=== PATIENT | male | born 1985 | race Caucasian/White ===

== ENCOUNTER 2016-09-18 10:26 | Emergency (ER) | payer OTHER ==
[2016-09-18 10:38] VITALS: BP 153/80; PULSE 94; RESP 20; TEMP 98.5
--- NOTE | 2016-09-18 12:01 | ED ---
Anxiety HPI - General Chief Complaint: Anxiety Stated Complaint: anxiety Time Seen by Provider: 09/18/16 11:49 Source: patient Mode of arrival: ambulatory - History of Present Illness Initial Comments: Patient is a 31-year-old male with history of anxiety presenting with worsening anxiety. Patient states he lost his 2-month-old son in his sleep several years ago. Patient has worsening anxiety around his son's birthday as well as Father' s Day. Patient takes clonidine 0.1 mg for his anxiety. He has been taking clonidine without relief. Patient was cleared from a therapist as he was doing well. Patient states since Monday he has been having intermittent anxiety episodes where he can't function. Patient denies suicidality, homicidality or hallucinations. - Related Data Home Medications: Home Medications Medication Instructions Recorded Confirmed Albuterol Inhaler [Ventolin Hfa 2 puff INHALATION RT-Q6H PRN 12/22/15 09/18/16 Inhaler] Famotidine [Pepcid] 20 mg PO DAILY PRN 09/18/16 09/18/16 cloNIDine HCL [Catapres] 0.1 mg PO HS 09/18/16 09/18/16 Previous Rx's Medication Instructions Recorded clonazePAM [KlonoPIN] 0.5 mg PO BID PRN #6 tablet 09/18/16 Allergies/Adverse Reactions: Allergies Allergy/AdvReac Type Severity Reaction Status Date / Time oats Allergy Anaphylaxis Verified 09/18/16 11:33 Penicillins Allergy Unknown Verified 09/18/16 11:33 Childhood Review of Systems ROS Statement: Those systems with pertinent positive or pertinent negative responses have been documented in the HPI. Constitutional: No fever and no chills. HENT: No congestion, no rhinorrhea and no sore throat. Eyes: No discharge and no redness. Respiratory: No cough and no shortness of breath. Cardiovascular: No chest pain and no palpitations. Gastrointestinal: No nausea, no vomiting, no abdominal pain and no diarrhea. Genitourinary: No dysuria and no hematuria. Musculoskeletal: No back pain and no arthralgias. Skin: No pallor and no rash. Neurological: No dizziness and No headaches. Psych: No suicidality, homicidality or hallucinations. ROS Other: All systems not noted in ROS Statement are negative. Past Medical History Past Medical History: No Reported History Additional Past Medical History / Comment(s): gallbladder problems History of Any Multi-Drug Resistant Organisms: None Reported Past Surgical History: Cholecystectomy, Hernia Repair, Tonsillectomy Additional Past Surgical History / Comment(s): pulmonary infusion Past Psychological History: Anxiety, Depression Smoking Status: Current every day smoker Past Alcohol Use History: None Reported Past Drug Use History: None Reported General Exam - General Exam Comments Initial Comments: Constitutional: Patient appears well-developed and well-nourished. No distress. Anxious appearing. Head: Normocephalic and atraumatic. Eyes: Conjunctivae and EOM are normal. Right eye exhibits no discharge. Left eye exhibits no discharge. No scleral icterus. Neck: Normal range of motion. Neck supple. Cardiovascular: Normal rate and regular rhythm. No murmur heard. Pulmonary/Chest: Effort normal and breath sounds normal. No respiratory distress. No wheezes. Abdominal: Soft. No distension. There is no tenderness. There is no rebound and no guarding. Musculoskeletal: Normal range of motion. No edema or tenderness. Neurological: Patient alert and oriented to person, place, and time. Psych: Denies suicidality, homicidality or hallucinations. Skin: Skin is warm and dry. Not diaphoretic. Nursing notes and vitals reviewed. Limitations: no limitations Course Vital Signs 09/18/16 10:37 Temperature 98.5 F Pulse Rate 94 Respiratory 20 Rate Blood Pressure 153/80 O2 Sat by Pulse 100 Oximetry - Reevaluation(s) Reevaluation #1: 09/18/16 12:05 Patient was on Klonopin in the past which worked for him. Patient requesting a short prescription for Klonopin. Medical Decision Making - Medical Decision Making Patient's a 31-year-old male presenting with anxiety. Patient is on clonidine and is not working for him. Patient's son in his sleep and patient gets triggers around Father's Day and his son's birthday. Patient states Klonopin worked in the past requesting a short prescription for. I will give patient a short prescription for Klonopin as she can follow-up with PCP on Monday or psychiatrist. Prior to discharge, patient was resting comfortably in bed. Course of stay stable for outpatient management as he is not suicidal, homicidal hallucinating. Denies pain. Discussed physical exam with patient. Questions answered and patient is agreeable to discharge with close follow up with Primary Care Physician. Instructed to return to Emergency Department if symptoms worsen. Disposition Clinical Impression: Anxiety Disposition: HOME SELF-CARE Condition: Good Instructions: Generalized Anxiety Disorder (ED) Prescriptions: clonazePAM [KlonoPIN] 0.5 mg PO BID PRN #6 tablet PRN Reason: Anxiety Referrals: Maki Plaza MD [Primary Care Provider] - 1-2 days
== END 2016-09-18 12:24 | disposition home or self-care (01) ==
LOC: EC 10:26
DX: F41.9 Anxiety disorder, unspecified (principal); F17.200 Nicotine dependence, unspecified, uncomplicated; Z79.899 Other long term (current) drug therapy; Z91.018 Allergy to other foods; Z88.0 Allergy status to penicillin
CPT/HCPCS: 99283

== ENCOUNTER 2017-05-26 23:41 | Inpatient (IN) | payer OTHER ==
--- NOTE | 2017-05-27 00:27 | ED ---
General Adult HPI - General Chief complaint: Shortness of Breath Stated complaint: NOMAN Time Seen by Provider: 05/27/17 00:08 Source: patient Mode of arrival: wheelchair Limitations: no limitations - History of Present Illness Initial comments: 32-year-old male patient presents to the emergency department today for complaints of shortness of breath. Patient states that symptoms started on Monday. States that he also has a cough with clear sputum production. States he has been wheezy. He states that he is unable to lie down without his shortness of breath becoming significantly worse. States he has been evaluated at [facility] emergency department and his primary care physician. He is been started on doxycycline twice daily, prednisone, and given DuoNeb breathing treatments. States has been doing multiple breathing treatments per day without relief of symptoms. States when he saw his primary care physician yesterday they did give him an injection of steroids. He states he is not feeling any better. States he's been having some chills. States that people noticed his lips have had a blue discoloration. He states that he was recently diagnosed with COPD and has been diagnosed with asthma in the past. He does report smoking a half a pack of cigarettes per day. He states that he becomes dizzy whenever he attempts to perform any activities. He states his chest feels tight and he has sharp pains bilaterally when he attempts to take a deep breath. Patient denies any recent rash, fever, abdominal pain, nausea, vomiting, diarrhea, constipation, back pain, numbness, tingling, weakness, hematuria, dysuria, urinary urgency, urinary frequency, headache, visual changes, or any other complaints. - Related Data Home Medications Medication Instructions Recorded Confirmed Albuterol Inhaler [Ventolin Hfa 2 puff INHALATION RT-Q6H PRN 12/22/15 09/18/16 Inhaler] Famotidine [Pepcid] 20 mg PO DAILY PRN 09/18/16 09/18/16 cloNIDine HCL [Catapres] 0.1 mg PO HS 09/18/16 09/18/16 DULoxetine HCL [Cymbalta] 60 mg PO DAILY 05/27/17 05/27/17 Allergies Allergy/AdvReac Type Severity Reaction Status Date / Time oats Allergy Anaphylaxis Verified 05/26/17 23:50 Penicillins Allergy Unknown Verified 05/26/17 23:50 Childhood Review of Systems ROS Statement: Those systems with pertinent positive or pertinent negative responses have been documented in the HPI. ROS Other: All systems not noted in ROS Statement are negative. Past Medical History Past Medical History: COPD, GERD/Reflux Additional Past Medical History / Comment(s): gallbladder problems History of Any Multi-Drug Resistant Organisms: None Reported Past Surgical History: Cholecystectomy, Hernia Repair, Tonsillectomy Additional Past Surgical History / Comment(s): pulmonary infusion Past Psychological History: Anxiety, Depression Smoking Status: Current every day smoker Past Alcohol Use History: None Reported Past Drug Use History: None Reported General Exam Limitations: no limitations General appearance: alert, in no apparent distress, anxious Eye exam: Present: normal appearance, PERRL, EOMI. Absent: scleral icterus, conjunctival injection, periorbital swelling ENT exam: Present: normal exam, normal oropharynx, mucous membranes moist, other (Bluish lower lip discoloration, lip is scaly and dry.) Respiratory exam: Present: wheezes (Expiratory wheezing noted throughout all posterior lung chavez). Absent: normal lung sounds bilaterally, respiratory distress, rales, rhonchi, stridor, chest wall tenderness Cardiovascular Exam: Present: regular rate, normal rhythm, normal heart sounds. Absent: systolic murmur, diastolic murmur, rubs, gallop, clicks GI/Abdominal exam: Present: soft, normal bowel sounds. Absent: distended, tenderness, guarding, rebound, rigid Neurological exam: Present: alert, oriented X3, CN II-XII intact Psychiatric exam: Present: normal affect, normal mood Skin exam: Present: warm, dry, intact, normal color. Absent: rash Course Vital Signs 05/26/17 05/27/17 05/27/17 23:47 01:05 01:12 Temperature 99.3 F Pulse Rate 98 88 97 Respiratory 20 Rate Blood Pressure 123/75 O2 Sat by Pulse 95 Oximetry EKG Findings - EKG Comments: EKG Findings:: EKG obtained at 00 55 shows normal sinus rhythm with a ventricular rate of 92, OR interval 136, QRS duration 94, QT 344, QTC 425. Medical Decision Making - Medical Decision Making 32-year-old male patient presented to the emergency department today with complaints of severe dyspnea and chest tightness. Physical examination did reveal coarse expiratory wheezing throughout all posterior lung chavez. Lips did have a bluish discoloration that did improve with the use of oxygen. Patient remained rib proximally 93% on 2 L while in the department. He did receive a DuoNeb, IV Solu-Medrol, and pain medications here in the department however he reported no improvement in his symptoms. Lab testing was performed and reviewed, d-dimer was negative, ABG was performed and showed a pH of 7.46, CO2 of 33, and a pO2 of 74. Methemoglobin was 0.6, carbon dioxide was 2.8. Other labs are markable as well. Chest x-ray did show worsening of the interstitial pulmonary markings. There is slight blunting of the right costophrenic angle. Suggestion of possible mild interstitial pneumonia. We will give a dose of rocephin and azithromycin pending further evaluation. We will admit patient to the hospital for failed outpatient treatment of acute bronchitis and possible pneumonia. We will provide breathing treatments, IV steroids, and antitussives. - Lab Data Result diagrams: 05/27/17 00:50 05/27/17 00:50 Lab Results 05/27/17 05/27/17 05/27/17 Range/Units 00:50 00:50 00:50 WBC 7.0 (3.8-10.6) k/uL RBC 4.88 (4.30-5.90) m/uL Hgb 15.6 (13.0-17.5) gm/dL Hct 47.8 (39.0-53.0) % MCV 97.9 (80.0-100.0) fL MCH 31.9 (25.0-35.0) pg MCHC 32.6 (31.0-37.0) g/dL RDW 12.2 (11.5-15.5) % Plt Count 187 (150-450) k/uL Neutrophils % 70 % Lymphocytes % 16 % Monocytes % 10 % Eosinophils % 1 % Basophils % 1 % Neutrophils # 4.9 (1.3-7.7) k/uL Lymphocytes # 1.1 (1.0-4.8) k/uL Monocytes # 0.7 (0-1.0) k/uL Eosinophils # 0.1 (0-0.7) k/uL Basophils # 0.1 (0-0.2) k/uL D-Dimer <0.17 (<0.60) mg/L FEU Sample Site ABG pH (7.35-7.45) ABG pCO2 (35-45) mmHg ABG pO2 (83-108) mmHg ABG HCO3 (21-25) mmol/L ABG Total CO2 (19-24) mmol/L ABG O2 Saturation (94-97) % ABG Base Excess mmol/L Jarred Test Methemoglobin (0.0-1.5) % Carbon Monoxide, Quant (<10.0) % FiO2 % Sodium 138 (137-145) mmol/L Potassium 4.0 (3.5-5.1) mmol/L Chloride 103 (98-107) mmol/L Carbon Dioxide 23 (22-30) mmol/L Anion Gap 12 mmol/L BUN 18 (9-20) mg/dL Creatinine 0.80 (0.66-1.25) mg/dL Est GFR (MDRD) Af Amer >60 (>60 ml/min/1.73 sqM) Est GFR (MDRD) Non-Af >60 (>60 ml/min/1.73 sqM) Glucose 85 (74-99) mg/dL Calcium 9.1 (8.4-10.2) mg/dL Total Bilirubin 0.2 (0.2-1.3) mg/dL AST 22 (17-59) U/L ALT 40 (21-72) U/L Alkaline Phosphatase 60 (38-126) U/L NT-Pro-B Natriuret Pep pg/mL Total Protein 7.1 (6.3-8.2) g/dL Albumin 4.3 (3.5-5.0) g/dL Influenza Type A RNA (Not Detectd) Influenza Type B (PCR) (Not Detectd) 05/27/17 05/27/17 05/27/17 Range/Units 00:50 01:50 01:50 WBC (3.8-10.6) k/uL RBC (4.30-5.90) m/uL Hgb (13.0-17.5) gm/dL Hct (39.0-53.0) % MCV (80.0-100.0) fL MCH (25.0-35.0) pg MCHC (31.0-37.0) g/dL RDW (11.5-15.5) % Plt Count (150-450) k/uL Neutrophils % % Lymphocytes % % Monocytes % % Eosinophils % % Basophils % % Neutrophils # (1.3-7.7) k/uL Lymphocytes # (1.0-4.8) k/uL Monocytes # (0-1.0) k/uL Eosinophils # (0-0.7) k/uL Basophils # (0-0.2) k/uL D-Dimer (<0.60) mg/L FEU Sample Site ABG pH (7.35-7.45) ABG pCO2 (35-45) mmHg ABG pO2 (83-108) mmHg ABG HCO3 (21-25) mmol/L ABG Total CO2 (19-24) mmol/L ABG O2 Saturation (94-97) % ABG Base Excess mmol/L Jarred Test Methemoglobin 0.6 (0.0-1.5) % Carbon Monoxide, Quant 2.8 (<10.0) % FiO2 % Sodium (137-145) mmol/L Potassium (3.5-5.1) mmol/L Chloride (98-107) mmol/L Carbon Dioxide (22-30) mmol/L Anion Gap mmol/L BUN (9-20) mg/dL Creatinine (0.66-1.25) mg/dL Est GFR (MDRD) Af Amer (>60 ml/min/1.73 sqM) Est GFR (MDRD) Non-Af (>60 ml/min/1.73 sqM) Glucose (74-99) mg/dL Calcium (8.4-10.2) mg/dL Total Bilirubin (0.2-1.3) mg/dL AST (17-59) U/L ALT (21-72) U/L Alkaline Phosphatase (38-126) U/L NT-Pro-B Natriuret Pep 37 pg/mL Total Protein (6.3-8.2) g/dL Albumin (3.5-5.0) g/dL Influenza Type A RNA Not Detected (Not Detectd) Influenza Type B (PCR) Not Detected (Not Detectd) 05/27/17 Range/Units 02:02 WBC (3.8-10.6) k/uL RBC (4.30-5.90) m/uL Hgb (13.0-17.5) gm/dL Hct (39.0-53.0) % MCV (80.0-100.0) fL MCH (25.0-35.0) pg MCHC (31.0-37.0) g/dL RDW (11.5-15.5) % Plt Count (150-450) k/uL Neutrophils % % Lymphocytes % % Monocytes % % Eosinophils % % Basophils % % Neutrophils # (1.3-7.7) k/uL Lymphocytes # (1.0-4.8) k/uL Monocytes # (0-1.0) k/uL Eosinophils # (0-0.7) k/uL Basophils # (0-0.2) k/uL D-Dimer (<0.60) mg/L FEU Sample Site rbrac ABG pH 7.46 H (7.35-7.45) ABG pCO2 33 L (35-45) mmHg ABG pO2 74 L (83-108) mmHg ABG HCO3 23 (21-25) mmol/L ABG Total CO2 24 (19-24) mmol/L ABG O2 Saturation 96.2 (94-97) % ABG Base Excess -0.6 mmol/L Jarred Test Yes Methemoglobin (0.0-1.5) % Carbon Monoxide, Quant (<10.0) % FiO2 28 % Sodium (137-145) mmol/L Potassium (3.5-5.1) mmol/L Chloride (98-107) mmol/L Carbon Dioxide (22-30) mmol/L Anion Gap mmol/L BUN (9-20) mg/dL Creatinine (0.66-1.25) mg/dL Est GFR (MDRD) Af Amer (>60 ml/min/1.73 sqM) Est GFR (MDRD) Non-Af (>60 ml/min/1.73 sqM) Glucose (74-99) mg/dL Calcium (8.4-10.2) mg/dL Total Bilirubin (0.2-1.3) mg/dL AST (17-59) U/L ALT (21-72) U/L Alkaline Phosphatase (38-126) U/L NT-Pro-B Natriuret Pep pg/mL Total Protein (6.3-8.2) g/dL Albumin (3.5-5.0) g/dL Influenza Type A RNA (Not Detectd) Influenza Type B (PCR) (Not Detectd) - Radiology Data Radiology results: report reviewed, image reviewed Two-view x-ray of the chest shows heart media's enema normal. Some coarsening of the interstitial pulmonary markings. Slight blunting of the right costophrenic angle. Bony thorax is intact. Impression by Dr. Suma Corrales shows pleural reaction at the right lung base. Slight increased interstitial density in the lungs is nonspecific. This could be mild interstitial pneumonia. Normal heart. Disposition Clinical Impression: Pneumonia, Acute bronchitis Disposition: ADMITTED IP TO THIS HOSP Condition: Serious Referrals: Maki Plaza MD [Primary Care Provider] - 1-2 days Decision to Admit Reason: Admit from EC Decision Date: 05/27/17 Decision Time: 02:46
[2017-05-27] MEDS ORDERED: IPRATROPIUM-ALBUTEROL 3 ML NEB INHALATION STA (00:36)
[2017-05-27] MEDS ORDERED: methylPREDNISolone SOD SUCCI 125 MG/2 ML VIAL IV STA ×2 (00:37→02:36)
[2017-05-27 01:04] LABS: Basophils # (A) 0.1 k/uL (0-0.2); Basophils % (A) 1 %; Eosinophils # (A) 0.1 k/uL (0-0.7); Eosinophils % (A) 1 %; HCT 47.8 % (39.0-53.0); HGB 15.6 gm/dL (13.0-17.5); Lymphocytes # (A) 1.1 k/uL (1.0-4.8); Lymphocytes % (A) 16 %; MCH 31.9 pg (25.0-35.0); MCHC 32.6 g/dL (31.0-37.0); MCV 97.9 fL (80.0-100.0); Mean Platelet Volume 7.2; Monocytes # (A) 0.7 k/uL (0-1.0); Monocytes % (A) 10 %; Neutrophils # (A) 4.9 k/uL (1.3-7.7); Neutrophils % (A) 70 %; Platelet Count 187 k/uL (150-450); RBC 4.88 m/uL (4.30-5.90); RDW 12.2 % (11.5-15.5)
[2017-05-27 01:18] LABS: ALT 40 U/L (21-72); AST 22 U/L (17-59); Albumin 4.3 g/dL (3.5-5.0); Alkaline Phosphatase 60 U/L (38-126); Anion Gap 12 mmol/L; Blood Urea Nitrogen 18 mg/dL (9-20); Calcium 9.1 mg/dL (8.4-10.2); Carbon Dioxide 23 mmol/L (22-30); Chloride 103 mmol/L (98-107); Glucose 85 mg/dL (74-99); Sodium 138 mmol/L (137-145); Total Bilirubin 0.2 mg/dL (0.2-1.3); Total Protein 7.1 g/dL (6.3-8.2)
--- NOTE | 2017-05-27 01:35 | XR ---
EXAMINATION TYPE: XR chest 2V DATE OF EXAM: 05/27/2017 COMPARISON: NONE HISTORY: Short of breath TECHNIQUE: Frontal and lateral views of the chest are obtained. FINDINGS: Heart and mediastinum are normal. There is some coarsening of interstitial pulmonary nanette ngs. There is slight blunting of right costophrenic angle. Bony thorax is intact. IMPRESSION: There is some pleural reaction at the right lung base. Slight increased interstitial den sity in the lungs is nonspecific. This could be mild interstitial pneumonia. Normal heart.
[2017-05-27] MEDS ORDERED: KETOROLAC 30 MG/ML 1 ML VIAL IVP STA (01:37)
[2017-05-27] MEDS ORDERED: ACETAMINOPHEN TAB 325 MG TAB PO STA (01:37)
[2017-05-27 02:05] LABS: ABG Base Excess -0.6 mmol/L; ABG HCO3 23 mmol/L (21-25); ABG Oxygen Saturation 96.2 % (94-97); ABG PCO2 33 mmHg (35-45); ABG PH 7.46 (7.35-7.45); ABG PO2 74 mmHg (83-108); ABG TCO2 24 mmol/L (19-24)
[2017-05-27 02:05] LABS: Carbon Monoxide 2.8 % (<10.0); Methemoglobin 0.6 % (0.0-1.5)
[2017-05-27] MEDS ORDERED: cloNIDine HCL 0.1 MG TAB PO STA (02:26)
[2017-05-27] MEDS ORDERED: NALOXONE 0.4 MG/ML 1 ML VIAL IV PRN (02:34)
[2017-05-27] MEDS ORDERED: BENZONATATE 100 MG CAP PO PRN (02:36)
[2017-05-27] MEDS ORDERED: ACETAMINOPHEN TAB 325 MG TAB PO PRN (02:37)
[2017-05-27] MEDS ORDERED: AZITHROMYCIN 500 MG in SODIUM CHLORIDE 0.9% 250 ML IVPB STA (02:42)
[2017-05-27] MEDS ORDERED: cefTRIAXone IN SWFI 1,000 MG/10 ML SYRINGE IVP STA ×2 (02:42→13:29)
[2017-05-27] MEDS ORDERED: FAMOTIDINE 20 MG TAB PO PRN (03:10)
[2017-05-27] MEDS ORDERED: OLANZapine 10 MG TAB PO STA (03:11)
[2017-05-27] MEDS: OLANZapine 10 MG TAB PO SCH (03:20)
[2017-05-27] MEDS ORDERED: IPRATROPIUM-ALBUTEROL 3 ML NEB INHALATION PRN (03:49)
[2017-05-27] MEDS ORDERED: IPRATROPIUM-ALBUTEROL 3 ML NEB INHALATION SCH (04:00)
[2017-05-27 04:32] VITALS: BMI 24.7
[2017-05-27] MEDS: IPRATROPIUM-ALBUTEROL 3 ML NEB INHALATION SCH ×4 (07:33→19:12)
[2017-05-27] MEDS: methylPREDNISolone SOD SUCCI 125 MG/2 ML VIAL IV SCH ×3 (07:40→19:57)
[2017-05-27] MEDS ORDERED: NITROGLYCERIN SL TABS 0.4 MG TAB SUBLINGUAL PRN (09:20)
[2017-05-27] MEDS: DULoxetine HCL 60 MG CAPSULE.DR PO SCH (09:30)
[2017-05-27] MEDS ORDERED: SODIUM CHLORIDE 0.9% 500 ML IV ONE (09:41)
[2017-05-27] MEDS: SODIUM CHLORIDE 0.9% 1,000 ML IV SCH ×4 (09:44→20:30)
[2017-05-27] MEDS: SYMBICORT 160-4.5 MCG INHALER INHALATION SCH ×2 (15:32→19:12)
[2017-05-27] MEDS: NICOTINE 21MG/24HR PATCH TRANSDERM SCH (16:29)
--- NOTE | 2017-05-27 16:49 | P.CNPUL ---
History of Present Illness Consult date: 05/27/17 Requesting physician: Nirmal Shay Reason for consult: dyspnea, abnormal CXR/CT Chief complaint: Shortness of breath, cough and congestion History of present illness: This is a very pleasant 32-year-old gentleman who follows with Dr. Plaza is his primary care physician. He has a history of chronic and ongoing tobacco dependence, anxiety/depression, esophageal strictures, previous pneumonias. He does have a history of aspiration pneumonia at age 20 that required chest tube placement and eventual surgical intervention of the right lung. Approximately 5 days ago he developed increasing shortness of breath, cough and congestion. He was seen at [facility] was treated with a doxycycline and cough medicine. He is seen by his primary care physician 2 days ago and started on 20 mg of prednisone. Yesterday he went to work and on his way home and got significantly worse shortness of breath, cough and congestion and came to the emergency room. He was felt to have a right lower lobe pneumonia according to the chest x-ray. Some of this may be chronic in nature. He is also considered for COPD exacerbation based on his chronic smoking. He is seen today in consultation on the surgical floor. He is awake and alert in no acute distress. He is breathing slightly better today as compared to yesterday. No leukocytosis. Arterial blood gases revealed a pO2 of 34, pCO2 33, pH 7.46 on 28 % FiO2. Her influenza screen was negative. He is currently afebrile. Maintaining good O2 saturations in the 90s on 2 L/m per nasal cannula. Hemodynamically stable. Review of Systems 14 point review of system was conducted. All negative other than as mentioned in the HPI. That including respiratory with shortness of breath, cough and congestion. Past Medical History Past Medical History: COPD, GERD/Reflux Additional Past Medical History / Comment(s): gallbladder problems History of Any Multi-Drug Resistant Organisms: None Reported Past Surgical History: Cholecystectomy, Hernia Repair, Tonsillectomy Additional Past Surgical History / Comment(s): pulmonary infusion Past Psychological History: Anxiety, Depression Smoking Status: Current every day smoker Past Alcohol Use History: None Reported Past Drug Use History: None Reported Medications and Allergies Home Medications Medication Instructions Recorded Confirmed Type Albuterol Inhaler [Ventolin Hfa 2 puff INHALATION RT-Q6H PRN 12/22/15 05/27/17 History Inhaler] Famotidine [Pepcid] 20 mg PO DAILY PRN 09/18/16 05/27/17 History cloNIDine HCL [Catapres] 0.1 mg PO HS 09/18/16 05/27/17 History DULoxetine HCL [Cymbalta] 60 mg PO HS 05/27/17 05/27/17 History OLANZapine [ZyPREXA] 2.5 mg PO HS 05/27/17 05/27/17 History Allergies Allergy/AdvReac Type Severity Reaction Status Date / Time oats Allergy Anaphylaxis Verified 05/27/17 11:01 Penicillins Allergy Unknown Verified 05/27/17 11:01 Childhood Physical Exam Vitals: Vital Signs Temp Pulse Pulse Resp BP BP Pulse Ox 05/27/17 15:49 80 05/27/17 15:32 80 05/27/17 15:00 97.8 F 76 16 128/62 91 L 05/27/17 12:13 130/70 05/27/17 11:38 77 05/27/17 11:24 77 05/27/17 07:48 84 05/27/17 07:33 80 05/27/17 07:00 98.4 F 76 16 109/62 98 05/27/17 05:14 79 16 05/27/17 04:57 98.5 F 79 16 96/43 93 L 05/27/17 04:02 99.2 F 85 20 130/88 94 L 05/27/17 03:23 99.4 F 85 18 131/71 94 L 05/27/17 01:12 97 05/27/17 01:05 88 05/26/17 23:47 99.3 F 98 20 123/75 95 Intake and Output 05/27/17 05/27/17 05/27/17 06:59 14:59 22:59 Intake Total 1150 300 Balance 1150 300 Intake: Intake, IV Titration 850 Amount Sodium Chloride 0.9% 1, 350 000 ml @ 100 mls/hr IV . Q10H MOHIT Rx#:[id number] Sodium Chloride 0.9% 500 500 ml @ 999 mls/hr IV .Q31M ONE Rx#:[id number] Oral 300 300 Other: Voiding Method Toilet Toilet # Voids 1 Weight 76.204 kg GENERAL EXAM: Alert, active, comfortable in no apparent distress. HEAD: Normocephalic. EYES: Normal reaction of pupils, equal size. NOSE: Clear with pink turbinates. THROAT: No erythema or exudates. NECK: No masses, no JVD. CHEST: No chest wall deformity. LUNGS: Equal air entry with gauze and the right posterior base. Diminished. CVS: S1 and S2 normal with no audible murmur, regular rhythm. ABDOMEN: No hepatosplenomegaly, normal bowel sounds, no guarding or rigidity. SPINE: No scoliosis or deformity SKIN: No rashes CENTRAL NERVOUS SYSTEM: No focal deficits, tone is normal in all 4 extremities. EXTREMITIES: There is no peripheral edema. No clubbing, no cyanosis. Peripheral pulses are intact. Results - Laboratory Findings CBC and BMP: 05/27/17 00:50 05/27/17 00:50 ABG ABG pH 7.46 (7.35-7.45) H 05/27/17 02:02 ABG pCO2 33 mmHg (35-45) L 05/27/17 02:02 ABG pO2 74 mmHg (83-108) L 05/27/17 02:02 ABG O2 Saturation 96.2 % (94-97) 05/27/17 02:02 PT/INR, D-dimer D-Dimer <0.17 mg/L FEU (<0.60) 05/27/17 00:50 Abnormal lab findings: Abnormal Labs 05/27/17 02:02 ABG pH 7.46 H ABG pCO2 33 L ABG pO2 74 L - Diagnostic Findings Chest x-ray: image reviewed Assessment and Plan Assessment: Impression: #1 Acute hypoxic respiratory failure secondary to a right lower lobe pneumonia. Some of these changes may be chronic in nature. #2 Chronic and ongoing tobacco dependence with some suspected chronic obstructive pulmonary disease. #3 Acute exacerbation of chronic obstructive pulmonary disease. #4 Previous history of pneumonias including chest tube placement and surgical intervention at age 20. #5 History of esophageal strictures with previous dilation. #6 Anxiety/depression. Plan: The patient was seen and evaluated by Dr. Chowdary. His chest x-ray, ABGs and labs were all reviewed. We'll go ahead and treat the patient for suspected right lower lobe pneumonia though some of these changes may be chronic in nature. We'll also treat him for COPD exacerbation. He is currently on DuoNeb inhalations 4 times a day and when necessary, Symbicort, IV Solu-Medrol. Continue Tessalon Perles. He is also on antibiotics in the form of tracks tone and azithromycin. He is educated regarding the importance of complete smoking cessation. A Habitrol patch is in place. He would benefit from a full pulmonary function testing in our office to evaluate the severity of his COPD and make recommendations for her maintenance medications. We will continue to follow and make further recommendations based on his clinical status. I, the cosigning physician, performed a history & physical examination of the patient. Lungs sounds scattered rhonchi, crackles in the right posterior base. Maintaining good O2 saturations in the 90s on 2 L/m per nasal cannula.. I discussed the assessment and plan of care with my nurse practitioner, Tracy Ramey. I attest to the above consultation as dictated by her. Time with Patient: Greater than 30
[2017-05-27] MEDS ORDERED: HYDROcodone/APAP 5-325MG 1 EACH TAB PO PRN (17:00)
--- NOTE | 2017-05-27 18:01 | HP ---
HISTORY AND PHYSICAL DATE OF SERVICE: 05/27/2017 CHIEF COMPLAINT: Shortness of breath and cough and sputum. HISTORY OF PRESENT ILLNESS: This 32-year-old gentleman with a past medical history of multiple medical problems including COPD, GERD, gallbladder problems, history of hernia repair, anxiety, depression being followed by Dr. Plaza in the outpatient setting, was admitted with shortness of breath, cough and sputum. The patient has been struggling for several days. Patient has been to [facility] twice and the patient was given antibiotics and doxycycline, prednisone as well as DuoNeb. Because of lack of improvement, the patient came to [facility] and admitted for further evaluation and treatment. A chest x-ray done at the time of admission showed some pleural reaction and nonspecific interstitial prominence. The flu swab is negative. The possibility of bronchopneumonia is being considered. There is no history of fever, rigors or chills. PAST MEDICAL: COPD, GERD, gallbladder, cholecystectomy, anxiety and depression. MEDICATIONS: Prior to home medications are Catapres 0.1 p.o. q.h.s., Zyprexa 2.5 mg q.h.s. Pepcid 20 mg daily p.r.n., Cymbalta 60 mg daily, Ventolin 2 puffs q.6h p.r.n. ALLERGIES: PENICILLIN. FAMILY HISTORY: No history of heart disease or strokes in the family. SOCIAL HISTORY: History of smoking, continued ongoing. No history of alcohol intake. REVIEW OF SYSTEMS: ENT: No diminished hearing or vision. CARDIOVASCULAR: No angina. RESPIRATORY: As mentioned earlier. GI: No nausea. : No dysuria. NERVOUS SYSTEM: No numbness, weakness. ALLERGY/IMMUNOLOGY: No asthma or hayfever. MUSCULOSKELETAL: As mentioned. HEMATOLOGY/ONCOLOGY: No history of anemia. ENDOCRINE: No history of diabetes or hypothyroidism. CONSTITUTIONAL: As mentioned earlier. DERMATOLOGY: Negative. RHEUMATOLOGY: Negative. PSYCHIATRY: As mentioned earlier. PHYSICAL EXAMINATION: Alert and oriented x3. Pulse 72, blood pressure 120/62, respirations 16, temperature 97.8, pulse ox 98% on room air. HEENT: Conjunctivae normal. Oral mucosa moist. NECK: No jugular venous distention. No carotid bruit. No lymph node enlargement. CARDIOVASCULAR: S1, S2. RESPIRATORY: Breath sounds diminished in the bases. Bilateral scattered rhonchi and crackles. Expiratory wheezing also present. ABDOMEN: Soft, nontender. No mass palpable. LEGS: No edema, no swelling. NERVOUS SYSTEM: Higher functions as mentioned, moves all 4 limbs, no focal deficits. LYMPHATICS: No lymphadenopathy in the neck, axillae, groin. SKIN: No ulcer, rash or bleeding. LABS: CBC and BMP within normal. ASSESSMENT: 1. Chronic obstructive pulmonary disease acute exacerbation with acute purulent tracheobronchitis or possible early bronchopneumonia bilaterally gram- negative. 2. History of ongoing nicotine dependence. 3. History of gastroesophageal reflux disease. 4. History of cholecystectomy. 5. History of hernia. 6. Anxiety and depression. RECOMMENDATIONS AND DISCUSSION: This 32-year-old gentleman who presented with multiple complex medical issues, monitor the patient closely. Continue the current management, optimize the bronchodilator treatment and IV steroids. Pulmonary consultation, broad-spectrum IV antibiotics. Continue to monitor. Repeat labs. DVT prophylaxis. See orders for further details. Further recommendations to follow. MMODL / IJN: [id number] / NICKI
[2017-05-27 20:05] LABS: Glucose,Whole Blood 147 mg/dL (75-99)
[2017-05-27] MEDS: AZITHROMYCIN 500 MG in SODIUM CHLORIDE 0.9% 250 ML IVPB SCH (20:15)
[2017-05-27] MEDS: HEPARIN SODIUM,PORCINE 5,000 UNIT/ML 1 ML VIAL SQ SCH (20:16)
[2017-05-27] MEDS: INSULIN ASPART 100 UNIT/ML 1 ML 10 ML VIAL SQ SCH ×2 (20:30→22:43)
[2017-05-27] MEDS: cloNIDine HCL 0.1 MG TAB PO SCH (22:45)
[2017-05-27] MEDS: OLANZapine 2.5 MG TAB PO SCH (22:45)
[2017-05-27 23:38] LABS: Hemoglobin A1C 5.5 % (4.0-6.0)
[2017-05-28] MEDS: methylPREDNISolone SOD SUCCI 125 MG/2 ML VIAL IV SCH ×3 (01:41→13:56)
[2017-05-28] MEDS: ALPRAZolam 0.25 MG TAB PO PRN ×2 (06:52→14:00)
[2017-05-28 07:10] LABS: Glucose,Whole Blood 125 mg/dL (75-99)
[2017-05-28] MEDS: SYMBICORT 160-4.5 MCG INHALER INHALATION SCH ×2 (07:10→20:16)
[2017-05-28] MEDS: IPRATROPIUM-ALBUTEROL 3 ML NEB INHALATION SCH ×4 (07:10→20:16)
--- NOTE | 2017-05-28 08:17 | P.PN ---
Subjective Progress Note Date: 05/28/17 Principal diagnosis: Acute hypoxic respiratory failure secondary to a right lower lobe pneumonia This is a very pleasant 32-year-old gentleman who follows with Dr. Plaza is his primary care physician. He has a history of chronic and ongoing tobacco dependence, anxiety/depression, esophageal strictures, previous pneumonias. He does have a history of aspiration pneumonia at age 20 that required chest tube placement and eventual surgical intervention of the right lung. Approximately 5 days ago he developed increasing shortness of breath, cough and congestion. He was seen at [facility] was treated with a doxycycline and cough medicine. He is seen by his primary care physician 2 days ago and started on 20 mg of prednisone. Yesterday he went to work and on his way home and got significantly worse shortness of breath, cough and congestion and came to the emergency room. He was felt to have a right lower lobe pneumonia according to the chest x-ray. Some of this may be chronic in nature. He is also considered for COPD exacerbation based on his chronic smoking. He is seen today in consultation on the surgical floor. He is awake and alert in no acute distress. He is breathing slightly better today as compared to yesterday. No leukocytosis. Arterial blood gases revealed a pO2 of 34, pCO2 33, pH 7.46 on 28 % FiO2. Her influenza screen was negative. He is currently afebrile. Maintaining good O2 saturations in the 90s on 2 L/m per nasal cannula. Hemodynamically stable. On 05/28/2017 patient seen again in follow-up. Still has a congested cough, unable to bring up any sputum. Remains on oxygen at 2 L per nasal cannula, on room air his pulse ox was 91%, but the patient put her back on because of increased shortness of breath this morning. Remains afebrile. Other vitals are stable. Lung sounds are positive for coarse crackles over bilateral bases, more so on the right. There are generally diminished lung sounds. He continues on combination of azithromycin and ceftriaxone nebulized treatments, Tessalon Perles and Symbicort, and IV steroids. Objective - Vital Signs Vital signs: Vital Signs Temp 98.3 F 05/28/17 07:00 Pulse 76 05/28/17 07:25 Resp 22 05/28/17 07:00 BP 135/64 05/28/17 07:00 Pulse Ox 91 L 05/28/17 07:00 Intake & Output 05/27/17 05/28/17 05/28/17 18:59 06:59 18:59 Intake Total 1950 Balance 1950 Intake: Intake, IV Titration 850 Amount Sodium Chloride 0.9% 1, 350 000 ml @ 100 mls/hr IV . Q10H MOHIT Rx#:[id number] Sodium Chloride 0.9% 500 500 ml @ 999 mls/hr IV .Q31M ONE Rx#:[id number] Oral 1100 Other: Voiding Method Toilet Toilet # Voids 1 - Exam GENERAL EXAM: Alert, active, comfortable in no apparent distress. HEAD: Normocephalic. EYES: Normal reaction of pupils, equal size. NOSE: Clear with pink turbinates. THROAT: No erythema or exudates. NECK: No masses, no JVD. CHEST: No chest wall deformity. LUNGS: Equal air entry with crackles in bilateral bases, worse on the right CVS: S1 and S2 normal with no audible murmur, regular rhythm. ABDOMEN: No hepatosplenomegaly, normal bowel sounds, no guarding or rigidity. SPINE: No scoliosis or deformity SKIN: No rashes CENTRAL NERVOUS SYSTEM: No focal deficits, tone is normal in all 4 extremities. EXTREMITIES: There is no peripheral edema. No clubbing, no cyanosis. Peripheral pulses are intact. - Labs CBC & Chem 7: 05/27/17 00:50 05/27/17 00:50 Labs: Abnormal Lab Results - Last 24 Hours (Table) 05/27/17 05/28/17 Range/Units 19:59 07:00 POC Glucose (mg/dL) 147 H 125 H (75-99) mg/dL Assessment and Plan Plan: Assessment: #1 Acute hypoxic respiratory failure secondary to a right lower lobe pneumonia. Some of these changes may be chronic in nature. #2 Chronic and ongoing tobacco dependence with some suspected chronic obstructive pulmonary disease. #3 Acute exacerbation of chronic obstructive pulmonary disease. #4 Previous history of pneumonias including chest tube placement and surgical intervention at age 20. #5 History of esophageal strictures with previous dilation. #6 Anxiety/depression. Plan: Continue current plan of treatment, patient is still very dyspneic with exertion , ambulation to the bathroom. He is wearing her oxygen intermittently, because of episodes of dyspnea, states he feels better with it on. Afebrile, hemodynamically stable. Continue Rocephin and Zithromax. Continue IV Solu- Medrol, nebulized treatments and Symbicort. We will obtain another chest x-ray in the morning. We'll continue to follow with you I performed a history & physical examination of the patient and discussed their management with my nurse practitioner, Sharon Garcia. I reviewed the nurse practitioner's note and agree with the documented findings and plan of care. Lung sounds are generally diminished, with bibasilar crackles. The findings and the impression was discussed with the patient. I attest to the documentation by the nurse practitioner. Time with Patient: Less than 30
[2017-05-28] MEDS ORDERED: SODIUM CHLORIDE 0.65% NASAL SPRAY 44 ML BTL NASAL PRN (08:18)
[2017-05-28] MEDS: PANTOPRAZOLE 40 MG TABLET PO SCH (08:31)
[2017-05-28] MEDS: cefTRIAXone IN SWFI 1,000 MG/10 ML SYRINGE IVP SCH (08:31)
[2017-05-28] MEDS: HEPARIN SODIUM,PORCINE 5,000 UNIT/ML 1 ML VIAL SQ SCH ×2 (08:32→21:32)
[2017-05-28] MEDS: DULoxetine HCL 60 MG CAPSULE.DR PO SCH (08:32)
[2017-05-28] MEDS: NICOTINE 21MG/24HR PATCH TRANSDERM SCH (08:33)
[2017-05-28] MEDS: OLANZapine 10 MG TAB PO SCH (08:34)
[2017-05-28] MEDS: INSULIN ASPART 100 UNIT/ML 1 ML 10 ML VIAL SQ SCH ×4 (08:50→21:32)
[2017-05-28 11:37] LABS: Glucose,Whole Blood 128 mg/dL (75-99)
[2017-05-28] MEDS: SODIUM CHLORIDE 0.9% 1,000 ML IV SCH ×3 (13:58→21:33)
--- NOTE | 2017-05-28 16:54 | PN ---
PROGRESS NOTE DATE OF SERVICE: 05/28/2017. INTERVAL HISTORY: This 32-year-old gentleman who was admitted with COPD acute exacerbation, acute purulent tracheobronchitis, also had early bronchopneumonia. No chest pain. No palpitations. No fever. EXAM: Alert and oriented x3. Pulse 82, blood pressure 130/63, respirations 16, temperature 97.8, pulse ox 94% on room air. HEENT: Conjunctivae normal. NECK: No jugular venous distention. CARDIOVASCULAR: S1, S2 muffled. RESPIRATORY: Breath sounds diminished at the bases. Bilateral scattered rhonchi and crackles. ABDOMEN: Soft, nontender. LEGS: No edema. No swelling. NERVOUS SYSTEM: No focal deficits. LABS: Glucose 128. ASSESSMENT: 1. Chronic obstructive pulmonary disease acute exacerbation with acute purulent tracheobronchitis, early bronchopneumonia with bilaterally gram-negative. 2. History of ongoing nicotine dependence. 3. History of previous pneumonia. 4. History of gastroesophageal reflux disease. 5. History of cholecystectomy. History of hernia. 6. Anxiety, depression. RECOMMENDATIONS AND DISCUSSION: I recommend to continue the current management and continue with bronchodilators. Taper the steroids to 40 IV q.8. Otherwise closely monitor with Dr. Chowdary. The overall prognosis guarded because of the multiple complex medical issues and further recommendations to follow. Recommend smoking cessation. See orders for further details. I discussed with the patient and family. MMODL / IJN: [id number] /
[2017-05-28 17:12] LABS: Glucose,Whole Blood 128 mg/dL (75-99)
[2017-05-28 19:53] LABS: Glucose,Whole Blood 143 mg/dL (75-99)
[2017-05-28] MEDS: OLANZapine 2.5 MG TAB PO SCH (21:32)
[2017-05-28] MEDS: methylPREDNISolone SOD SUCCI 40 MG/ML 1 ML VIAL IV SCH (21:32)
[2017-05-28] MEDS: cloNIDine HCL 0.1 MG TAB PO SCH (21:32)
[2017-05-28] MEDS: AZITHROMYCIN 500 MG in SODIUM CHLORIDE 0.9% 250 ML IVPB SCH (21:33)
[2017-05-29] MEDS: SODIUM CHLORIDE 0.9% 1,000 ML IV SCH (05:03)
[2017-05-29] MEDS: IPRATROPIUM-ALBUTEROL 3 ML NEB INHALATION SCH ×2 (07:01→11:29)
[2017-05-29] MEDS: SYMBICORT 160-4.5 MCG INHALER INHALATION SCH (07:01)
[2017-05-29 07:05] LABS: Glucose,Whole Blood 170 mg/dL (75-99)
[2017-05-29] MEDS: methylPREDNISolone SOD SUCCI 40 MG/ML 1 ML VIAL IV SCH (07:12)
[2017-05-29 07:18] LABS: Basophils % (A) 0 %; Eosinophils % (A) 0 %; HCT 45.1 % (39.0-53.0); HGB 14.7 gm/dL (13.0-17.5); Lymphocytes # (A) 1.2 k/uL (1.0-4.8); Lymphocytes % (A) 12 %; MCH 31.9 pg (25.0-35.0); MCHC 32.6 g/dL (31.0-37.0); MCV 97.9 fL (80.0-100.0); Monocytes # (A) 0.5 k/uL (0-1.0); Monocytes % (A) 5 %; Neutrophils # (A) 8.6 k/uL (1.3-7.7); Neutrophils % (A) 81 %; Platelet Count 214 k/uL (150-450); RBC 4.61 m/uL (4.30-5.90); RDW 12.3 % (11.5-15.5); WBC 10.6 k/uL (3.8-10.6)
[2017-05-29 07:32] LABS: Anion Gap 11 mmol/L; Blood Urea Nitrogen 15 mg/dL (9-20); Calcium 8.7 mg/dL (8.4-10.2); Carbon Dioxide 28 mmol/L (22-30); Chloride 103 mmol/L (98-107); Glucose 99 mg/dL (74-99); Potassium 4.4 mmol/L (3.5-5.1); Sodium 142 mmol/L (137-145)
[2017-05-29] MEDS: INSULIN ASPART 100 UNIT/ML 1 ML 10 ML VIAL SQ SCH (08:11)
[2017-05-29] MEDS: DULoxetine HCL 60 MG CAPSULE.DR PO SCH (08:12)
[2017-05-29] MEDS: PANTOPRAZOLE 40 MG TABLET PO SCH (08:12)
[2017-05-29] MEDS: HEPARIN SODIUM,PORCINE 5,000 UNIT/ML 1 ML VIAL SQ SCH (08:12)
[2017-05-29] MEDS: NICOTINE 21MG/24HR PATCH TRANSDERM SCH (08:12)
[2017-05-29] MEDS: cefTRIAXone IN SWFI 1,000 MG/10 ML SYRINGE IVP SCH (08:13)
[2017-05-29 09:27] VITALS: BP 124/62; RESP 16; TEMP 98
--- NOTE | 2017-05-29 10:43 | XR ---
EXAMINATION TYPE: XR chest 2V DATE OF EXAM: 05/29/2017 COMPARISON: Prior chest x-ray 05/27/2017 HISTORY: Right lower lobe pneumonia TECHNIQUE: Frontal and lateral views of the chest are obtained. FINDINGS: Patchy basilar density is again noted. No evident pneumothorax. Cardiac mediastinal silhou ette, pulmonary vascularity and lucia are stable. IMPRESSION: Suspect basilar atelectasis, correlate to exclude pneumonia. Follow-up is recommended.
[2017-05-29 11:25] LABS: Glucose,Whole Blood 138 mg/dL (75-99)
[2017-05-29 11:55] VITALS: PULSE 88
--- NOTE | 2017-05-29 13:02 | P.PN ---
Subjective Progress Note Date: 05/29/17 Principal diagnosis: Acute hypoxic respiratory failure secondary to a right lower lobe pneumonia This is a very pleasant 32-year-old gentleman who follows with Dr. Plaza is his primary care physician. He has a history of chronic and ongoing tobacco dependence, anxiety/depression, esophageal strictures, previous pneumonias. He does have a history of aspiration pneumonia at age 20 that required chest tube placement and eventual surgical intervention of the right lung. Approximately 5 days ago he developed increasing shortness of breath, cough and congestion. He was seen at [facility] was treated with a doxycycline and cough medicine. He is seen by his primary care physician 2 days ago and started on 20 mg of prednisone. Yesterday he went to work and on his way home and got significantly worse shortness of breath, cough and congestion and came to the emergency room. He was felt to have a right lower lobe pneumonia according to the chest x-ray. Some of this may be chronic in nature. He is also considered for COPD exacerbation based on his chronic smoking. He is seen today in consultation on the surgical floor. He is awake and alert in no acute distress. He is breathing slightly better today as compared to yesterday. No leukocytosis. Arterial blood gases revealed a pO2 of 34, pCO2 33, pH 7.46 on 28 % FiO2. Her influenza screen was negative. He is currently afebrile. Maintaining good O2 saturations in the 90s on 2 L/m per nasal cannula. Hemodynamically stable. On 05/28/2017 patient seen again in follow-up. Still has a congested cough, unable to bring up any sputum. Remains on oxygen at 2 L per nasal cannula, on room air his pulse ox was 91%, but the patient put her back on because of increased shortness of breath this morning. Remains afebrile. Other vitals are stable. Lung sounds are positive for coarse crackles over bilateral bases, more so on the right. There are generally diminished lung sounds. He continues on combination of azithromycin and ceftriaxone nebulized treatments, Tessalon Perles and Symbicort, and IV steroids. On 05/29/2017 patient is feeling better. He is on room air, denies any acute respiratory distress. No fevers no chills or night sweats. Lung sounds are positive for bibasilar scattered rales, but this is much improved from yesterday 's exam. Afebrile, vital signs are stable. Today's chest x-ray showed basilar atelectasis. Clinically patient is much improved. No new labs today. From pulmonary standpoint patient is stable for discharge home today. Objective - Vital Signs Vital signs: Vital Signs Temp 98.0 F 05/29/17 07:00 Pulse 88 05/29/17 11:54 Resp 16 05/29/17 07:00 BP 124/62 05/29/17 07:00 Pulse Ox 93 L 05/29/17 07:01 Intake & Output 05/28/17 05/29/17 05/29/17 18:59 06:59 18:59 Intake Total 1730 Balance 1730 Intake: Intake, IV Titration 400 Amount Sodium Chloride 0.9% 1, 400 000 ml @ 50 mls/hr IV . Q20H MOHIT Rx#:[id number] Oral 1330 Other: # Voids 2 0 - Exam GENERAL EXAM: Alert, active, comfortable in no apparent distress. HEAD: Normocephalic. EYES: Normal reaction of pupils, equal size. NOSE: Clear with pink turbinates. THROAT: No erythema or exudates. NECK: No masses, no JVD. CHEST: No chest wall deformity. LUNGS: Equal air entry with crackles in bilateral bases, worse on the right CVS: S1 and S2 normal with no audible murmur, regular rhythm. ABDOMEN: No hepatosplenomegaly, normal bowel sounds, no guarding or rigidity. SPINE: No scoliosis or deformity SKIN: No rashes CENTRAL NERVOUS SYSTEM: No focal deficits, tone is normal in all 4 extremities. EXTREMITIES: There is no peripheral edema. No clubbing, no cyanosis. Peripheral pulses are intact. - Labs CBC & Chem 7: 05/29/17 06:43 05/29/17 06:43 Labs: Abnormal Lab Results - Last 24 Hours (Table) 05/28/17 05/28/17 05/29/17 Range/Units 16:47 19:50 06:43 Neutrophils # 8.6 H (1.3-7.7) k/uL POC Glucose (mg/dL) 128 H 143 H (75-99) mg/dL 05/29/17 05/29/17 Range/Units 07:03 11:22 Neutrophils # (1.3-7.7) k/uL POC Glucose (mg/dL) 170 H 138 H (75-99) mg/dL Assessment and Plan Plan: Assessment: #1 Acute hypoxic respiratory failure secondary to a right lower lobe pneumonia. Some of these changes may be chronic in nature. #2 Chronic and ongoing tobacco dependence with some suspected chronic obstructive pulmonary disease. #3 Acute exacerbation of chronic obstructive pulmonary disease. #4 Previous history of pneumonias including chest tube placement and surgical intervention at age 20. #5 History of esophageal strictures with previous dilation. #6 Anxiety/depression. Plan: Patient reports significant improvement in his condition. Denies any acute distress, still gets a bit dyspneic with ambulation, but was able to get up and ambulate today. He is on room air, vital signs are stable, patient remains afebrile. From pulmonary standpoint he is stable for discharge home, he will need follow-up appointment with Dr. Harris in 3 days. I performed a history & physical examination of the patient and discussed their management with my nurse practitioner, Sharon Garcia. I reviewed the nurse practitioner's note and agree with the documented findings and plan of care. Lung sounds are generally diminished, with bibasilar crackles. The findings and the impression was discussed with the patient. I attest to the documentation by the nurse practitioner. Time with Patient: Less than 30
[2017-05-29] MEDS ORDERED: AZITHROMYCIN 500 MG TAB PO SCH (21:00)
--- NOTE | 2017-05-30 06:43 | DS ---
DISCHARGE SUMMARY DATE OF SERVICE: 05/29/2017. FINAL DIAGNOSES: 1. Chronic obstructive pulmonary disease acute exacerbation with acute purulent tracheobronchitis, early bronchopneumonia bilateral gram-negative. 2. History of ongoing nicotine dependence. 3. History of previous pneumonia. 4. History of gastroesophageal reflux disease. 5. History of cholecystectomy. 6. History of hernia. 7. Anxiety, depression. DISCHARGE DISPOSITION: The patient will be discharged in stable condition with guarded prognosis. Dr. Lomeli cleared the patient for discharge. HISTORY OF PRESENT ILLNESS: This 32-year-old gentleman with a past medical history of multiple medical problems admitted with COPD and as well as failure of outpatient treatment and bronchopneumonia, treated symptomatically. Patient improved significantly. On exam, vitals are stable. CARDIOVASCULAR: S1 and S2 muffled. RESPIRATORY: A few rhonchi. Breath sounds . The patient discharged in a stable condition with guarded prognosis. DISCHARGE ADVICE: 1. Diet is cardiac. 2. Activity limited until followup. 3. Follow up with Dr. Plaza in 2 to 3 days. 4. Follow up with Dr. Chowdary as advised. Medications are: 1. Ventolin HFA 2 puffs q.6h p.r.n. 2. Zithromax 500 mg p.o. q.h.s. for 3 more days. 3. Symbicort 160/4.5 two puffs b.i.d. 4. Ceftin 500 mg p.o. b.i.d. for 5 days. 5. Catapres 0.1 mg q.h.s. 6. Cymbalta 60 mg q.h.s. 7. Pepcid 20 mg p.o. daily. 8. Albuterol and Atrovent nebulizer q.i.d. and p.r.n. 9. Habitrol 21. 10.Zyprexa 2.5 mg q.h.s. 11.Prednisone taper that is 40 mg daily for 3 days, 30 for 3 days, 20 for 3 days , 10 for 3 days. 12.Nasal spray saline. MMODL / IJN: [id number] / MTDD
== END 2017-05-29 13:15 | disposition home or self-care (01) | DRG 177 ==
LOC: EC 23:41 → 3SUR 05-27 03:00
PROVIDERS: ADMIT Hospitalist; ATTEND Hospitalist
DX: J15.6 Pneumonia due to other Gram-negative bacteria (principal); J96.01 Acute respiratory failure with hypoxia; J44.0 Chronic obstructive pulmonary disease with (acute) lower respiratory infection; J44.1 Chronic obstructive pulmonary disease with (acute) exacerbation; J98.11 Atelectasis; F17.210 Nicotine dependence, cigarettes, uncomplicated; F32.9 Major depressive disorder, single episode, unspecified; F41.9 Anxiety disorder, unspecified; J20.9 Acute bronchitis, unspecified; K21.9 Gastro-esophageal reflux disease without esophagitis; Z87.01 Personal history of pneumonia (recurrent); Z90.49 Acquired absence of other specified parts of digestive tract; Z88.0 Allergy status to penicillin; Z79.899 Other long term (current) drug therapy
CPT/HCPCS: 36415; 36600; 71046; 80048; 80053; 82375; 82805; 83036; 83050; 83880; 84484; 85025; 85379; 87502; 93005; 94640; 94760; 96365; 96375; 99285

== ENCOUNTER 2017-11-14 21:14 | Emergency (ER) | payer OTHER ==
[2017-11-14 21:28] VITALS: BP 130/80; PULSE 78; RESP 18; TEMP 98.2
[2017-11-14] MEDS ORDERED: KETOROLAC 60 MG/2 ML VIAL IM STA (22:16)
--- NOTE | 2017-11-14 22:19 | ED ---
Back Pain HPI - General Chief Complaint: Back Pain/Injury Stated Complaint: back injury work related Time Seen by Provider: 11/14/17 22:08 Source: patient Limitations: no limitations - History of Present Illness Initial Comments: 32-year-old male past medical history of chronic low back pain presents today for back injury at work. 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 Patient was still aching pain localized to the lower back. Pt decided to present to the ER this evening when the back pain persisted. Patient denies numbness, tingling, paresthesia, loss sensation, muscle weakness , loss of bowel or bladder control, IV drug use, recent weight loss, fever, chills, dysuria, urgency, frequency, chest pain, shortness any other symptoms. Upon arrival patient's VS stable. - Related Data Home Medications Medication Instructions Recorded Confirmed Famotidine [Pepcid] 20 mg PO BID 09/18/16 11/14/17 cloNIDine HCL [Catapres] 0.1 mg PO HS 09/18/16 11/14/17 DULoxetine HCL [Cymbalta] 30 mg PO HS 05/27/17 11/14/17 OLANZapine [ZyPREXA] 2.5 mg PO HS 05/27/17 11/14/17 Albuterol Inhaler [Ventolin Hfa 1 - 2 puff INHALATION RT-Q6H PRN 11/14/17 Inhaler] Albuterol Nebulized [Ventolin 2.5 mg INHALATION RT-Q6H PRN 11/14/17 11/14/17 Nebulized] Budesonide-Formot 160-4.5 Mcg 2 puff INHALATION RT-BID PRN 11/14/17 11/14/17 [Symbicort 160-4.5 Mcg Inhaler] Meloxicam [Mobic] 15 mg PO DAILY 11/14/17 11/14/17 Montelukast [Singulair] 10 mg PO DAILY 11/14/17 11/14/17 Multivitamin,Therapeutic [Thera] 1 tab PO DAILY 11/14/17 11/14/17 Tumeric 1 tab PO DAILY 11/14/17 11/14/17 clonazePAM [KlonoPIN] 0.25 mg PO BID PRN 11/14/17 11/14/17 Previous Rx's Medication Instructions Recorded Ibuprofen 600 mg PO Q6H PRN 5 Days #20 tablet 11/14/17 Allergies Allergy/AdvReac Type Severity Reaction Status Date / Time oats Allergy Anaphylaxis Verified 11/14/17 21:39 Penicillins Allergy Unknown Verified 11/14/17 21:39 Childhood Review of Systems ROS Statement: Those systems with pertinent positive or pertinent negative responses have been documented in the HPI. ROS Other: All systems not noted in ROS Statement are negative. Constitutional: Denies: fever, chills Eyes: Denies: vision change Respiratory: Denies: cough, dyspnea, wheezes, hemoptysis, stridor Cardiovascular: Denies: chest pain, palpitations Gastrointestinal: Denies: abdominal pain, nausea, vomiting, diarrhea, constipation Genitourinary: Denies: urgency, dysuria, frequency, hematuria Musculoskeletal: Reports: as per HPI, back pain. Denies: joint swelling, arthralgia Skin: Denies: rash, lesions Neurological: Denies: headache, weakness, numbness, paresthesias, confusion, abnormal gait, vertigo Past Medical History Past Medical History: GERD/Reflux Additional Past Medical History / Comment(s): gallbladder problems, broken back when he was 9 years old. History of Any Multi-Drug Resistant Organisms: None Reported Past Surgical History: Cholecystectomy, Hernia Repair, Tonsillectomy Additional Past Surgical History / Comment(s): pulmonary infusion Past Psychological History: Anxiety, Depression Smoking Status: Current every day smoker Past Alcohol Use History: Rare Past Drug Use History: None Reported General Exam - General Exam Comments Initial Comments: General: The patient is awake and alert, in no distress, and does not appear acutely ill. Eye: Pupils are equal, round and reactive to light, extra-ocular movements are intact. No nystagmus. There is normal conjunctiva bilaterally. No signs of icterus. Ears, nose, mouth and throat: There are moist mucous membranes and no oral lesions. Cardiovascular: There is a regular rate and rhythm. No murmur, rub or gallop is appreciated. Respiratory: Lungs are clear to auscultation, respirations are non-labored, breath sounds are equal. No wheezes, stridor, rales, or rhonchi. Musculoskeletal: No swelling, erythema, lesions of the lumbar spine. Normal ROM with full flexion, hypertension, lateral flexion bilaterally and rotation, no tenderness to the patient a lumbar spine midline or paravertebral.. Strength 5/5 of the lower extremities equally bilaterally. Sensation intact of the lower extremities equally bilaterally. DP pulses equal bilaterally 2+. Pt is able to heel, and toe walk without difficulty. +2 deep tendon reflexes of lower external knees bilaterally. No evidence of fasciculations or myoclonus. Neurological: A&O x 3. CN II-XII intact, There are no obvious motor or sensory deficits. Coordination appears grossly intact. Speech is normal. Skin: Skin is warm and dry and no rashes or lesions are noted. Psychiatric: Cooperative, appropriate mood & affect, normal judgment. Limitations: no limitations Course Vital Signs 11/14/17 21:25 Temperature 98.2 F Pulse Rate 78 Respiratory 18 Rate Blood Pressure 130/80 O2 Sat by Pulse 98 Oximetry Medical Decision Making - Medical Decision Making This is a well-appearing 32-year-old who appears to be resting comfortably in the stretcher. Physical examination unremarkable patient is not complaining of pain with range of motion of the back or palpation of the spine midline or paravertebral. He states the pain is just inside of his back. He does not radiate down his legs. Patient was given a one-time 30 mg IM injection of Toradol for pain management. X-ray of lumbar spine negative. At this time feel patient has a low back strain. Patient was discharged with primary care follow-up in 1-2 days and RX for ibuprofen 600mg. Case discussed in detail with Dr. Manrique who agrees with impression and plan. Pt d/c in stable condition. Patient instructed to return for his department if symptoms change or worsen including loss of bowel or bladder control, loss of sensation or muscle weakness lower extremities. Disposition Clinical Impression: Low back pain, Low back strain Disposition: HOME SELF-CARE Condition: Good Instructions: Acute Low Back Pain (ED) Additional Instructions: Please use medication as discussed. Please follow-up with primary care provider in the next 1-2 days. Please return to emergency room if the symptoms increase or worsen or for any other concerns. Prescriptions: Ibuprofen 600 mg PO Q6H PRN 5 Days #20 tablet PRN Reason: Pain Is patient prescribed a controlled substance at d/c from ED?: No Referrals: Maki Plaza MD [Primary Care Provider] - 1-2 days Time of Disposition: 22:19
--- NOTE | 2017-11-14 22:31 | XR ---
EXAMINATION TYPE: XR lumbar spine 2 or 3V DATE OF EXAM: 11/14/2017 COMPARISON: NONE HISTORY: Back pain TECHNIQUE: 3 views FINDINGS: Lumbar vertebra have normal alignment. Posterior elements are intact. There is no compressi on fracture. Sacroiliac joints appear normal. IMPRESSION: Normal lumbar spine.
== END 2017-11-14 22:46 | disposition home or self-care (01) ==
LOC: EC 21:14
DX: S39.012A Strain of muscle, fascia and tendon of lower back, initial encounter (principal); K21.9 Gastro-esophageal reflux disease without esophagitis; F41.9 Anxiety disorder, unspecified; F32.9 Major depressive disorder, single episode, unspecified; F17.200 Nicotine dependence, unspecified, uncomplicated; Z79.1 Long term (current) use of non-steroidal anti-inflammatories (NSAID); Z79.899 Other long term (current) drug therapy; Z91.018 Allergy to other foods; Z88.0 Allergy status to penicillin; X50.0XXA Overexertion from strenuous movement or load, initial encounter; Y92.69 Other specified industrial and construction area as the place of occurrence of the external cause; Y99.0 Civilian activity done for income or pay
CPT/HCPCS: 72100; 99283; 96372; J1885

== ENCOUNTER 2017-11-19 10:04 | Emergency (ER) | payer OTHER ==
[2017-11-19] MEDS ORDERED: SODIUM CHLORIDE 0.9% 500 ML IV STA (11:13)
[2017-11-19] MEDS ORDERED: MORPHINE SULFATE 2 MG/ML SYRINGE IVP STA (11:13)
[2017-11-19] MEDS ORDERED: MAG HYDROX/AL HYDROX/SIMETH 30 ML, HYOSCYAMINE ELIXIR 10 ML, CIMETIDINE HCL 300 MG, LID... PO STA ×4 (11:15)
--- NOTE | 2017-11-19 11:24 | ED ---
General Adult HPI - General Chief complaint: Abdominal Pain Stated complaint: upper abdominal pain Source: patient Mode of arrival: ambulatory Limitations: no limitations - History of Present Illness Initial comments: Dictation was produced using [employer] dictation software. please excuse any grammatical, word or spelling errors. Chief Complaint: 32-year-old male with past medical history of hiatal hernia presents with epigastric abdominal pain. History of Present Illness: Patient is a 32-year-old male with past medical history of GERD, reflux, status post cholecystectomy, hiatal hernia presents with multiple days of epigastric pain. States that his pain is worse with lying flat and sometimes postprandially. He also does complain of worsening symptoms with deep inspiration. Patient denies any lower extremity symptoms. Denies any constitutional symptoms. He was told he has a small hiatal hernia for which he takes Pepcid. He tried taking a breathing treatment with no resolve of his symptoms. The ROS documented in this emergency department record has been reviewed and confirmed by me. Those systems with pertinent positive or negative responses have been documented in the HPI. All other systems are other negative and/or noncontributory. - Related Data Home Medications Medication Instructions Recorded Confirmed Famotidine [Pepcid] 20 mg PO BID 09/18/16 11/14/17 cloNIDine HCL [Catapres] 0.1 mg PO HS 09/18/16 11/14/17 DULoxetine HCL [Cymbalta] 30 mg PO HS 05/27/17 11/14/17 OLANZapine [ZyPREXA] 2.5 mg PO HS 05/27/17 11/14/17 Albuterol Inhaler [Ventolin Hfa 1 - 2 puff INHALATION RT-Q6H PRN 11/14/17 Inhaler] Albuterol Nebulized [Ventolin 2.5 mg INHALATION RT-Q6H PRN 11/14/17 11/14/17 Nebulized] Budesonide-Formot 160-4.5 Mcg 2 puff INHALATION RT-BID PRN 11/14/17 11/14/17 [Symbicort 160-4.5 Mcg Inhaler] Meloxicam [Mobic] 15 mg PO DAILY 11/14/17 11/14/17 Montelukast [Singulair] 10 mg PO DAILY 11/14/17 11/14/17 Multivitamin,Therapeutic [Thera] 1 tab PO DAILY 11/14/17 11/14/17 Tumeric 1 tab PO DAILY 11/14/17 11/14/17 clonazePAM [KlonoPIN] 0.25 mg PO BID PRN 11/14/17 11/14/17 Previous Rx's Medication Instructions Recorded Ibuprofen 600 mg PO Q6H PRN 5 Days #20 tablet 11/14/17 Allergies Allergy/AdvReac Type Severity Reaction Status Date / Time oats Allergy Anaphylaxis Verified 11/19/17 10:19 Penicillins Allergy Unknown Verified 11/19/17 10:19 Childhood Review of Systems ROS Statement: Those systems with pertinent positive or pertinent negative responses have been documented in the HPI. ROS Other: All systems not noted in ROS Statement are negative. Past Medical History Past Medical History: GERD/Reflux Additional Past Medical History / Comment(s): gallbladder problems, broken back when he was 9 years old. History of Any Multi-Drug Resistant Organisms: None Reported Past Surgical History: Cholecystectomy, Hernia Repair, Tonsillectomy Additional Past Surgical History / Comment(s): pulmonary infusion Past Psychological History: Anxiety, Depression Smoking Status: Current every day smoker Past Alcohol Use History: Rare Past Drug Use History: None Reported General Exam - General Exam Comments Initial Comments: PHYSICAL EXAM: General Impression: Alert and oriented x3, not in acute distress HEENT: Normocephalic atraumatic, extra-ocular movements intact, pupils equal and reactive to light bilaterally, mucous membranes moist. Cardiovascular: Heart regular rate and rhythm, S1&S2 audible, no murmurs, rubs or gallops Chest: Lungs clear to auscultation bilaterally, no rhonchi, no wheeze, no rales Abdomen: Bowel sounds present, abdomen soft, mild tenderness to the epigastric area, non-distended, no organomegaly Musculoskeletal: Pulses present and equal in all extremities, no peripheral edema Motor: Power 5/5 bilaterally, no focal deficits noted Neurological: CN II-XII grossly intact, no focal motor or sensory deficits noted Skin: Intact with no visualized rashes Psych: Normal affect and mood Limitations: no limitations Course Vital Signs 11/19/17 10:15 Temperature 98.1 F Pulse Rate 74 Respiratory 18 Rate Blood Pressure 133/80 O2 Sat by Pulse 97 Oximetry Medical Decision Making - Medical Decision Making ED course: 32-year-old male with past medical history of hiatal hernia status post cholecystectomy presents with epigastric pain. As upon arrival are within acceptable limits.Laboratory evaluation obtained. Leukocytosis of 10.8. Coag panel unremarkable. Laboratory evaluation is unremarkable. Chest x-ray shows right pleural effusion KUB shows findings of mild ileus. Patient is reviewed. No overt medications to suggest ileus secondary to medication side effect. Right effusion is likely secondary to reactive process happening in the abdomen. Patient states he is still passing gas and having bowel movements. There is strong family history of Crohn's disease and inflammatory bowel disease. Patient is told that he needs to follow-up with the [facility]. Patient also told to take bowel regimen. He will obtain these from [id number]. Patient has medications at home. He still to ambulate. Given referral to [facility]. Patient told to return if he develops any fever, worsening abdominal pain, nausea vomiting. Patient is understandable and agreeable. - Lab Data Result diagrams: 11/19/17 11:31 11/19/17 11:31 Lab Results 11/19/17 11/19/17 11/19/17 Range/Units 11:31 11:31 11:31 WBC 10.8 H (3.8-10.6) k/uL RBC 5.05 (4.30-5.90) m/uL Hgb 16.4 (13.0-17.5) gm/dL Hct 48.6 (39.0-53.0) % MCV 96.2 (80.0-100.0) fL MCH 32.4 (25.0-35.0) pg MCHC 33.7 (31.0-37.0) g/dL RDW 12.8 (11.5-15.5) % Plt Count 287 (150-450) k/uL Neutrophils % 63 % Lymphocytes % 26 % Monocytes % 6 % Eosinophils % 4 % Basophils % 1 % Neutrophils # 6.8 (1.3-7.7) k/uL Lymphocytes # 2.8 (1.0-4.8) k/uL Monocytes # 0.6 (0-1.0) k/uL Eosinophils # 0.4 (0-0.7) k/uL Basophils # 0.1 (0-0.2) k/uL PT (9.0-12.0) sec INR (<1.2) Sodium 140 (137-145) mmol/L Potassium 4.2 (3.5-5.1) mmol/L Chloride 107 (98-107) mmol/L Carbon Dioxide 24 (22-30) mmol/L Anion Gap 9 mmol/L BUN 11 (9-20) mg/dL Creatinine 0.74 (0.66-1.25) mg/dL Est GFR (CKD-EPI)AfAm >90 (>60 ml/min/1.73 sqM) Est GFR (CKD-EPI)NonAf >90 (>60 ml/min/1.73 sqM) Glucose 89 (74-99) mg/dL Calcium 9.4 (8.4-10.2) mg/dL Total Bilirubin 0.4 (0.2-1.3) mg/dL AST 32 (17-59) U/L ALT 83 H (21-72) U/L Alkaline Phosphatase 69 (38-126) U/L Total Creatine Kinase 60 (55-170) U/L CK-MB (CK-2) 0.6 (0.0-2.4) ng/mL CK-MB (CK-2) Rel Index 1.0 Troponin I <0.012 (0.000-0.034) ng/mL Total Protein 7.4 (6.3-8.2) g/dL Albumin 4.5 (3.5-5.0) g/dL Lipase 92 (23-300) U/L 11/19/17 Range/Units 11:31 WBC (3.8-10.6) k/uL RBC (4.30-5.90) m/uL Hgb (13.0-17.5) gm/dL Hct (39.0-53.0) % MCV (80.0-100.0) fL MCH (25.0-35.0) pg MCHC (31.0-37.0) g/dL RDW (11.5-15.5) % Plt Count (150-450) k/uL Neutrophils % % Lymphocytes % % Monocytes % % Eosinophils % % Basophils % % Neutrophils # (1.3-7.7) k/uL Lymphocytes # (1.0-4.8) k/uL Monocytes # (0-1.0) k/uL Eosinophils # (0-0.7) k/uL Basophils # (0-0.2) k/uL PT 10.4 (9.0-12.0) sec INR 1.1 (<1.2) Sodium (137-145) mmol/L Potassium (3.5-5.1) mmol/L Chloride (98-107) mmol/L Carbon Dioxide (22-30) mmol/L Anion Gap mmol/L BUN (9-20) mg/dL Creatinine (0.66-1.25) mg/dL Est GFR (CKD-EPI)AfAm (>60 ml/min/1.73 sqM) Est GFR (CKD-EPI)NonAf (>60 ml/min/1.73 sqM) Glucose (74-99) mg/dL Calcium (8.4-10.2) mg/dL Total Bilirubin (0.2-1.3) mg/dL AST (17-59) U/L ALT (21-72) U/L Alkaline Phosphatase (38-126) U/L Total Creatine Kinase (55-170) U/L CK-MB (CK-2) (0.0-2.4) ng/mL CK-MB (CK-2) Rel Index Troponin I (0.000-0.034) ng/mL Total Protein (6.3-8.2) g/dL Albumin (3.5-5.0) g/dL Lipase (23-300) U/L Disposition Clinical Impression: Ileus Disposition: HOME SELF-CARE Condition: Good Instructions: Ileus (ED) Is patient prescribed a controlled substance at d/c from ED?: No Referrals: Maki Plaza MD [Primary Care Provider] - 1-2 days Kirk Alvarez MD [STAFF PHYSICIAN] - 1-2 days Time of Disposition: 12:54
[2017-11-19 11:47] LABS: Basophils # (A) 0.1 k/uL (0-0.2); Basophils % (A) 1 %; Eosinophils # (A) 0.4 k/uL (0-0.7); Eosinophils % (A) 4 %; HCT 48.6 % (39.0-53.0); HGB 16.4 gm/dL (13.0-17.5); Lymphocytes # (A) 2.8 k/uL (1.0-4.8); Lymphocytes % (A) 26 %; MCH 32.4 pg (25.0-35.0); MCHC 33.7 g/dL (31.0-37.0); MCV 96.2 fL (80.0-100.0); Mean Platelet Volume 6.9; Monocytes # (A) 0.6 k/uL (0-1.0); Monocytes % (A) 6 %; Neutrophils # (A) 6.8 k/uL (1.3-7.7); Neutrophils % (A) 63 %; Platelet Count 287 k/uL (150-450); RBC 5.05 m/uL (4.30-5.90); RDW 12.8 % (11.5-15.5); WBC 10.8 k/uL (3.8-10.6)
[2017-11-19 11:53] LABS: ALT 83 U/L (21-72); AST 32 U/L (17-59); Albumin 4.5 g/dL (3.5-5.0); Alkaline Phosphatase 69 U/L (38-126); Anion Gap 9 mmol/L; Blood Urea Nitrogen 11 mg/dL (9-20); Calcium 9.4 mg/dL (8.4-10.2); Carbon Dioxide 24 mmol/L (22-30); Chloride 107 mmol/L (98-107); Glucose 89 mg/dL (74-99); Lipase 92 U/L (23-300); Potassium 4.2 mmol/L (3.5-5.1); Sodium 140 mmol/L (137-145); Total Bilirubin 0.4 mg/dL (0.2-1.3); Total Protein 7.4 g/dL (6.3-8.2)
[2017-11-19 11:56] LABS: INR 1.1 (<1.2); Prothrombin Time 10.4 sec (9.0-12.0)
[2017-11-19 12:04] LABS: Creatine Kinase 60 U/L (55-170)
[2017-11-19 12:16] LABS: Creatine Kinase MB 0.6 ng/mL (0.0-2.4); Troponin I <0.012 ng/mL (0.000-0.034)
--- NOTE | 2017-11-19 12:23 | XR ---
EXAMINATION TYPE: XR KUB , 3 VIEWS DATE OF EXAM ORDERED: 11/19/2017 HISTORY: abdominal pain. COMPARISON: None. FINDINGS: There is blunting of the right CP angle. I cannot exclude a right-sided pleural effusion. Within the abdomen, the abdominal gas pattern is within normal limits. There is no evidence of obstru ction or free air. There are multiple air-fluid levels. No unusual calcifications are seen. IMPRESSION: 1. FINDINGS CONSISTENT WITH MILD ILEUS. 2. I SUSPECT A RIGHT-SIDED EFFUSION.
--- NOTE | 2017-11-19 12:25 | XR ---
EXAMINATION TYPE: XR chest 2V DATE OF EXAM: 11/19/2017 HISTORY: abdominal pain. REFERENCE: Previous study dated 05/29/2017. FINDINGS: There is a chronic right-sided pleural reaction. This may represent fluid or atelectasis. L eft lung is clear. The heart is not enlarged. IMPRESSION: CHRONIC RIGHT-SIDED PLEURAL REACTION.
[2017-11-19 13:07] VITALS: BP 115/66; PULSE 65; RESP 16; TEMP 98.7
== END 2017-11-19 13:30 | disposition home or self-care (01) ==
LOC: EC 10:04
DX: K56.7 Ileus, unspecified (principal); K21.9 Gastro-esophageal reflux disease without esophagitis; F32.9 Major depressive disorder, single episode, unspecified; F41.9 Anxiety disorder, unspecified; F17.200 Nicotine dependence, unspecified, uncomplicated; Z79.1 Long term (current) use of non-steroidal anti-inflammatories (NSAID); Z79.899 Other long term (current) drug therapy; Z88.0 Allergy status to penicillin; Z91.018 Allergy to other foods; Z90.49 Acquired absence of other specified parts of digestive tract
CPT/HCPCS: 36415; 93005; 80053; 82550; 82553; 83690; 84484; 85025; 85610; 71046; 74018; 99284; 96374; 96361; J2270

== ENCOUNTER 2017-12-21 07:38 | Day surgery (SDC) | payer OTHER ==
[2017-12-20 08:38] VITALS: BMI 25.8
[~2017-12-21 07:38] MED LIST: LACTATED RINGERS 1,000 ML IV SCH; LIDOCAINE 1% 20 ML VIAL (10MG/ML) FOR IV START INTRADERMA PRN; MIDAZOLAM 2 MG/2 ML VIAL IV PRN
[2017-12-21 08:20] VITALS: RESP 18; TEMP 98.7
[2017-12-21] MEDS ORDERED: LIDOCAINE 1% INJ 10MG/ML (20 ML MDV) ONE (08:58)
[2017-12-21] MEDS ORDERED: PROPOFOL 10 MG/ML 20 ML VIAL IV ONE (08:58)
--- NOTE | 2017-12-21 09:48 | P.PCN ---
Date of Procedure: 12/21/17 Procedure(s) Performed: Procedures: 1. Esophagogastroduodenoscopy and biopsy. 2. Colonoscopy and biopsy. Preoperative diagnosis: Epigastric pain, dysphagia and change in bowel habits. Postoperative diagnosis: 1. Sliding hiatal hernia and suspected eosinophilic esophagitis. 2. Gastritis with nodularity and friability of the mucosa in the cardia. 3. Less than ideal preparation of the colon, however, colon and terminal ileum appeared within normal limits. 4. Multiple biopsies obtained from the duodenum, antrum, cardia, esophagus, terminal ileum and random colon. Preparation: HalfLytely prep. Sedation: Was provided by anesthesia. Brief clinical history: The patient is a 32-year-old male who I have evaluated in the office earlier this month regarding epigastric pain and change in bowel habits of around 3 years duration. The patient has history of eosinophilic esophagitis that was diagnosed when he was 20 and he said that he had difficulty swallowing all his life. He takes Pepcid and he thinks it is working. He avoids oats which he thinks he is ALLERGIC to. He has 3-4 bowel movements per day some diarrheic and 2-4 times per week he loses continence. Denies bleeding. In addition he has been having epigastric pain and has history of hiatal hernia. A younger brother may have colitis or Crohn's disease and not responding to treatments. He had cholecystectomy 2 years ago for poorly functioning gallbladder. This evaluation is to assess for esophagitis, complicated reflux disease, celiac disease, inflammatory bowel disease or other pathology. Procedure: With the patient on his left lateral decubitus position and after informed consent and adequate sedation, I passed the Olympus GIF-140 60 video upper endoscope through the cricopharyngeus down the esophagus. GE junction was around 40 cm from the incisors and there was a sliding hiatal hernia measuring around 1-2 cm. The esophagus showed mild corrugations that can go along with eosinophilic esophagitis. The area in the cardia close to the GE junction showed nodularity and friability of the mucosa. The rest of the stomach showed some mottling and erythema. Pyloric channel, duodenal bulb, post bulbar area and descending duodenum appeared within normal limits. Because of his symptoms, I obtained biopsies from the duodenum, antrum, cardia and esophagus then the endoscope was withdrawn and I proceeded with the colonoscopy. Perianal area did not show any fissures or fistulas. There were no masses felt on digital rectal examination. The Olympus CFQ 160L video colonoscope was then inserted in the rectum in the usual fashion and advanced to the cecum. I intubated the ileocecal valve and examined the terminal ileum. Unfortunately, the preparation was less than ideal, however, the mucosa appeared healthy and I did not see any edema, erythema, friability, ulceration, exudation or spontaneous bleeding. There may have been an occasional diverticular orifice on the left side. No polyps or tumors were seen. I obtained biopsies from the terminal ileum and randomly from the colon then I retroflexed the endoscope in the rectum before the endoscope was withdrawn. The patient tolerated the procedure well. Plan: The patient was reassured. I will await biopsy results. I will see him in the office in follow-up and keep you updated on his progress.
[2017-12-21 09:59] VITALS: BP 134/78; PULSE 78
== END 2017-12-21 10:26 | disposition home or self-care (01) ==
LOC: ORWHC2ENDO 07:38
DX: K29.50 Unspecified chronic gastritis without bleeding (principal); K44.9 Diaphragmatic hernia without obstruction or gangrene; K21.0 Gastro-esophageal reflux disease with esophagitis; F39 Unspecified mood [affective] disorder; J44.9 Chronic obstructive pulmonary disease, unspecified; Z72.0 Tobacco use; Z90.49 Acquired absence of other specified parts of digestive tract; Z88.0 Allergy status to penicillin; Z79.1 Long term (current) use of non-steroidal anti-inflammatories (NSAID); Z79.899 Other long term (current) drug therapy
CPT/HCPCS: 88305; 45380; 43239; J2001; J2704

== ENCOUNTER 2017-12-23 07:36 | Emergency (ER) | payer OTHER ==
[2017-12-23 07:51] VITALS: RESP 18
--- NOTE | 2017-12-23 08:21 | ED ---
General Adult HPI - General Chief complaint: Upper Respiratory Infection Stated complaint: cough Time Seen by Provider: 12/23/17 08:07 Source: patient, RN notes reviewed Mode of arrival: ambulatory Limitations: no limitations - History of Present Illness Initial comments: 32-year-old male presenting to the emergency room today with chief complaint cough congestion over the last 4 days. Patient does admit that it feels a bronchitis to him. Patient does admit to recent EGD last week and a colonoscopy. Patient denies any other complaints or symptoms. Patient denies any recent fever, chills, shortness of breath, chest pain, back pain, abdominal pain, nausea or vomiting, numbness or tingling, dysuria or hematuria, constipation or diarrhea, headaches or visual changes, or any other complaints. - Related Data Home Medications Medication Instructions Recorded Confirmed Famotidine [Pepcid] 20 mg PO BID 09/18/16 12/21/17 cloNIDine HCL [Catapres] 0.1 mg PO HS 09/18/16 12/21/17 DULoxetine HCL [Cymbalta] 30 mg PO HS 05/27/17 12/21/17 OLANZapine [ZyPREXA] 2.5 mg PO HS 05/27/17 12/21/17 Albuterol Inhaler [Ventolin Hfa 1 - 2 puff INHALATION RT-Q6H PRN 11/14/17 Inhaler] Albuterol Nebulized [Ventolin 2.5 mg INHALATION RT-Q6H PRN 11/14/17 12/21/17 Nebulized] Budesonide-Formot 160-4.5 Mcg 2 puff INHALATION BID 11/14/17 12/21/17 [Symbicort 160-4.5 Mcg Inhaler] Meloxicam [Mobic] 15 mg PO DAILY PRN 11/14/17 12/21/17 Montelukast [Singulair] 10 mg PO DAILY 11/14/17 12/21/17 Multivitamin,Therapeutic [Thera] 1 tab PO DAILY 11/14/17 12/21/17 Turmeric Root Extract [Turmeric] 500 mg PO DAILY 11/14/17 12/21/17 clonazePAM [KlonoPIN] 0.25 mg PO BID PRN 11/14/17 12/21/17 Previous Rx's Medication Instructions Recorded Ibuprofen 600 mg PO Q6H PRN 5 Days #20 tablet 11/14/17 Azithromycin [Zithromax] 500 mg PO DAILY 5 Days tab 12/23/17 predniSONE 40 mg PO DAILY 5 Days tab 12/23/17 Allergies Allergy/AdvReac Type Severity Reaction Status Date / Time oats Allergy Anaphylaxis Verified 12/23/17 07:43 Penicillins Allergy Unknown Verified 12/23/17 07:43 Childhood Review of Systems ROS Statement: Those systems with pertinent positive or pertinent negative responses have been documented in the HPI. ROS Other: All systems not noted in ROS Statement are negative. Past Medical History Past Medical History: Asthma, GERD/Reflux, Neurologic Disorder Additional Past Medical History / Comment(s): static encephalopathy as infant, broken back when he was 9 years old, still w/chronic back pain,esophagitis in past, intermittent diarrhea/constipation, sometimes controlling bowels, seen in [facility] in November w/possible ileus History of Any Multi-Drug Resistant Organisms: None Reported Past Surgical History: Cholecystectomy, Hernia Repair, Tonsillectomy Additional Past Surgical History / Comment(s): pulmonary procedure to "clean out lungs" after aspiration pneumonia @20 Past Anesthesia/Blood Transfusion Reactions: No Reported Reaction Past Psychological History: Anxiety, Depression Smoking Status: Current every day smoker Past Alcohol Use History: None Reported Past Drug Use History: None Reported - Past Family History Mother Family Medical History: No Reported History General Exam - General Exam Comments Initial Comments: General: The patient is awake and alert, in no distress, and does not appear acutely ill. Eye: Extra-ocular movements are intact. No nystagmus. There is normal conjunctiva bilaterally. No signs of icterus. Ears, nose, mouth and throat: There are moist mucous membranes and no oral lesions. Neck: The neck is supple, there is no tenderness or JVD. Cardiovascular: There is a regular rate and rhythm. No murmur, rub or gallop is appreciated. Respiratory: Lungs are clear to auscultation, respirations are non-labored, breath sounds are equal. No wheezes, stridor, rales, or rhonchi. Musculoskeletal: Normal ROM, no tenderness. Sensation intact. Neurological: A&O x 3. CN II-XII intact, There are no obvious motor or sensory deficits. Coordination appears grossly intact. Speech is normal. Skin: Skin is warm and dry and no rashes or lesions are noted. Psychiatric: Cooperative, appropriate mood & affect, normal judgment. Limitations: no limitations Course Vital Signs 12/23/17 12/23/17 07:41 07:50 Temperature 97.6 F 98.2 F Pulse Rate 88 87 Respiratory 20 18 Rate Blood Pressure 112/70 132/64 O2 Sat by Pulse 100 95 Oximetry Medical Decision Making - Medical Decision Making Patient reexamined at this time shows no signs of distress he is asthmatic. Does have yellow sputum production. Vitals are stable. Patient resting comfortably. His chest x-ray was reviewed with his report was stuck and dictation mode. Did speak with radiologist he states he does see chronic changes in the right lung base. No acute changes with x-ray. Patient will be treated for asthmatic bronchitis placed on steroids and antibiotic of Z-Navid. Advised follow-up over the next 2 days return if symptoms increase or worsen. Disposition Clinical Impression: Acute bronchitis Disposition: HOME SELF-CARE Condition: Good Instructions: Upper Respiratory Infection (ED) Additional Instructions: Please use medication as discussed. Please follow-up with family doctor in the next 2 days of symptoms have not improved. Please return to emergency room if the symptoms increase or worsen or for any other concerns. Prescriptions: Azithromycin [Zithromax] 500 mg PO DAILY 5 Days tab predniSONE 40 mg PO DAILY 5 Days tab Is patient prescribed a controlled substance at d/c from ED?: No Referrals: Maki Plaza MD [Primary Care Provider] - 1-2 days Time of Disposition: 10:21
[2017-12-23 10:42] VITALS: BP 122/73; PULSE 70; TEMP 98.4
--- NOTE | 2017-12-26 07:34 | XR ---
EXAMINATION TYPE: XR chest 2V DATE OF EXAM: 12/23/2017 HISTORY: cough. REFERENCE: Previous study dated 11/19/2017. FINDINGS: There is a chronic right-sided pleural reaction. The lungs are otherwise clear. Pleural spa ce are clear. The heart is not enlarged. IMPRESSION: CHRONIC RIGHT-SIDED PLEURAL REACTION.
== END 2017-12-23 10:42 | disposition home or self-care (01) ==
LOC: EC 07:36
DX: J20.9 Acute bronchitis, unspecified (principal); J45.909 Unspecified asthma, uncomplicated; F41.9 Anxiety disorder, unspecified; F32.9 Major depressive disorder, single episode, unspecified; K21.9 Gastro-esophageal reflux disease without esophagitis; F17.200 Nicotine dependence, unspecified, uncomplicated; Z79.51 Long term (current) use of inhaled steroids; Z79.1 Long term (current) use of non-steroidal anti-inflammatories (NSAID); Z79.899 Other long term (current) drug therapy; Z88.0 Allergy status to penicillin; Z91.018 Allergy to other foods
CPT/HCPCS: 71046; 99283

== ENCOUNTER 2018-03-14 17:11 | Emergency (ER) | payer OTHER ==
[2018-03-14] MEDS ORDERED: PANTOPRAZOLE 40 MG/10 ML VIAL IVP STA (18:14)
[2018-03-14 18:39] LABS: Basophils # (A) 0.1 k/uL (0-0.2); Basophils % (A) 1 %; Eosinophils # (A) 0.3 k/uL (0-0.7); Eosinophils % (A) 4 %; HCT 47.7 % (39.0-53.0); HGB 16.5 gm/dL (13.0-17.5); Lymphocytes # (A) 2.9 k/uL (1.0-4.8); Lymphocytes % (A) 38 %; MCH 33.2 pg (25.0-35.0); MCHC 34.6 g/dL (31.0-37.0); MCV 95.9 fL (80.0-100.0); Mean Platelet Volume 7.2; Monocytes # (A) 0.5 k/uL (0-1.0); Monocytes % (A) 6 %; Neutrophils # (A) 3.9 k/uL (1.3-7.7); Neutrophils % (A) 50 %; Platelet Count 255 k/uL (150-450); RBC 4.98 m/uL (4.30-5.90); RDW 12.4 % (11.5-15.5); WBC 7.8 k/uL (3.8-10.6)
[2018-03-14 18:50] LABS: ALT 55 U/L (21-72); AST 28 U/L (17-59); Albumin 4.5 g/dL (3.5-5.0); Alkaline Phosphatase 73 U/L (38-126); Anion Gap 9 mmol/L; Blood Urea Nitrogen 13 mg/dL (9-20); Calcium 9.4 mg/dL (8.4-10.2); Carbon Dioxide 24 mmol/L (22-30); Chloride 107 mmol/L (98-107); Glucose 99 mg/dL (74-99); Potassium 4.2 mmol/L (3.5-5.1); Sodium 140 mmol/L (137-145); Total Bilirubin 0.3 mg/dL (0.2-1.3); Total Protein 7.7 g/dL (6.3-8.2)
[2018-03-14 19:02] LABS: Appearance,Urine Clear (Clear); Bilirubin,Urine Negative (Negative); Blood,Urine Negative (Negative); Color,Urine Yellow; Glucose,Urine (UA) Negative (Negative); Ketones,Urine Trace (Negative); Leukocyte Esterase,Urine Negative (Negative); Nitrite,Urine Negative (Negative); PH, Urine 5.5 (5.0-8.0); Protein,Urine Trace (Negative); Specific Gravity,Urine 1.024 (1.001-1.035)
--- NOTE | 2018-03-14 19:18 | ED ---
General Adult HPI - General Chief complaint: GI Bleed Stated complaint: bloody stool Time Seen by Provider: 03/14/18 18:02 Source: patient, RN notes reviewed Mode of arrival: ambulatory Limitations: no limitations - History of Present Illness Initial comments: Patient's 33-year-old male presented to the emergency room today with a chief complaint of possible blood in his stool. Patient does admit that he had a loose bowel movement earlier today and thought it looked dark and possibly like blood. Does admit that he's been having loose stools over the last few weeks. States was on antibiotics this past week placed by his dentist. Patient denies any other complaints or symptoms. Patient denies any recent fever, chills, shortness of breath, chest pain, back pain, abdominal pain, nausea or vomiting, numbness or tingling constipation, hematuria, dysuria, headaches or visual changes, or any other complaints. - Related Data Home Medications Medication Instructions Recorded Confirmed Famotidine [Pepcid] 20 mg PO BID 09/18/16 03/14/18 cloNIDine HCL [Catapres] 0.1 mg PO HS 09/18/16 03/14/18 DULoxetine HCL [Cymbalta] 30 mg PO HS 05/27/17 03/14/18 OLANZapine [ZyPREXA] 2.5 mg PO HS 05/27/17 03/14/18 Albuterol Inhaler [Ventolin Hfa 1 - 2 puff INHALATION RT-QID PRN 11/14/17 Inhaler] Albuterol Nebulized [Ventolin 2.5 mg INHALATION RT-QID PRN 11/14/17 03/14/18 Nebulized] Budesonide-Formot 160-4.5 Mcg 2 puff INHALATION BID 11/14/17 03/14/18 [Symbicort 160-4.5 Mcg Inhaler] Multivitamin,Therapeutic [Thera] 1 tab PO DAILY 11/14/17 03/14/18 Turmeric Root Extract [Turmeric] 500 mg PO DAILY 11/14/17 03/14/18 clonazePAM [KlonoPIN] 0.25 - 1 mg PO TID PRN 11/14/17 03/14/18 Nicotine 14Mg/24Hr Patch [Habitrol 1 patch TRANSDERM DAILY 12/12/18 12/12/18 14Mg/24Hr Patch] buPROPion HCL [Wellbutrin SR] 150 mg PO BID 03/14/18 03/14/18 Previous Rx's Medication Instructions Recorded Ibuprofen 600 mg PO Q6H PRN 5 Days #20 tablet 11/14/17 Allergies Allergy/AdvReac Type Severity Reaction Status Date / Time oats Allergy Anaphylaxis Verified 03/14/18 18:17 Penicillins Allergy Unknown Verified 03/14/18 18:17 Childhood Review of Systems ROS Statement: Those systems with pertinent positive or pertinent negative responses have been documented in the HPI. ROS Other: All systems not noted in ROS Statement are negative. Past Medical History Past Medical History: Asthma, GERD/Reflux, Neurologic Disorder Additional Past Medical History / Comment(s): static encephalopathy as , broken back when he was 9 years old, still w/chronic back pain,esophagitis in past, intermittent diarrhea/constipation, sometimes controlling bowels, seen in [facility] in November w/possible ileus History of Any Multi-Drug Resistant Organisms: None Reported Past Surgical History: Cholecystectomy, Hernia Repair, Tonsillectomy Additional Past Surgical History / Comment(s): pulmonary procedure to "clean out lungs" after aspiration pneumonia @20 Past Anesthesia/Blood Transfusion Reactions: No Reported Reaction Past Psychological History: Anxiety, Depression Smoking Status: Current every day smoker Past Alcohol Use History: None Reported Past Drug Use History: None Reported - Past Family History Mother Family Medical History: No Reported History General Exam - General Exam Comments Initial Comments: General: The patient is awake and alert, in no distress, and does not appear acutely ill. Eye: There is normal conjunctiva bilaterally. No signs of icterus. Ears, nose, mouth and throat: There are moist mucous membranes and no oral lesions. . Cardiovascular: There is a regular rate and rhythm. No murmur, rub or gallop is appreciated. Respiratory: Lungs are clear to auscultation, respirations are non-labored, breath sounds are equal. No wheezes, stridor, rales, or rhonchi. Gastrointestinal: Soft, non-distended, non-tender abdomen without masses or organomegaly noted. Musculoskeletal: Normal ROM, no tenderness. Neurological: A&O x 3. CN II-XII intact, There are no obvious motor or sensory deficits. Coordination appears grossly intact. Speech is normal. Skin: Skin is warm and dry and no rashes or lesions are noted. Psychiatric: Cooperative, appropriate mood & affect, normal judgment. : ZINC ETCHERMACKENZIE Yoder present for exam. Normal rectal tone. No bright red blood. No hemorrhoids. No fissure Limitations: no limitations Course Vital Signs 03/14/18 17:18 Temperature 99.0 F Pulse Rate 105 H Respiratory 20 Rate Blood Pressure 129/83 O2 Sat by Pulse 100 Oximetry Medical Decision Making - Medical Decision Making Patient's labs been reviewed are unremarkable. His vitals are stable. Patient' s resting comfortably. His abdomen is soft nontender. Patient stool guaiac test was negative. Results were discussed with patient. He does have an appointment with his GI doctor tomorrow. Patient had a recent colonoscopy a few months ago. He is advised following up with his scheduled appointment tomorrow return here to emergency room for any other concerns. - Lab Data Result diagrams: 03/14/18 18:21 03/14/18 18:21 Lab Results 03/14/18 03/14/18 03/14/18 Range/Units 18:21 18:21 18:21 WBC 7.8 (3.8-10.6) k/uL RBC 4.98 (4.30-5.90) m/uL Hgb 16.5 (13.0-17.5) gm/dL Hct 47.7 (39.0-53.0) % MCV 95.9 (80.0-100.0) fL MCH 33.2 (25.0-35.0) pg MCHC 34.6 (31.0-37.0) g/dL RDW 12.4 (11.5-15.5) % Plt Count 255 (150-450) k/uL Neutrophils % 50 % Lymphocytes % 38 % Monocytes % 6 % Eosinophils % 4 % Basophils % 1 % Neutrophils # 3.9 (1.3-7.7) k/uL Lymphocytes # 2.9 (1.0-4.8) k/uL Monocytes # 0.5 (0-1.0) k/uL Eosinophils # 0.3 (0-0.7) k/uL Basophils # 0.1 (0-0.2) k/uL Sodium 140 (137-145) mmol/L Potassium 4.2 (3.5-5.1) mmol/L Chloride 107 (98-107) mmol/L Carbon Dioxide 24 (22-30) mmol/L Anion Gap 9 mmol/L BUN 13 (9-20) mg/dL Creatinine 0.83 (0.66-1.25) mg/dL Est GFR (CKD-EPI)AfAm >90 (>60 ml/min/1.73 sqM) Est GFR (CKD-EPI)NonAf >90 (>60 ml/min/1.73 sqM) Glucose 99 (74-99) mg/dL Calcium 9.4 (8.4-10.2) mg/dL Total Bilirubin 0.3 (0.2-1.3) mg/dL AST 28 (17-59) U/L ALT 55 (21-72) U/L Alkaline Phosphatase 73 (38-126) U/L Total Protein 7.7 (6.3-8.2) g/dL Albumin 4.5 (3.5-5.0) g/dL Urine Color Urine Appearance (Clear) Urine pH (5.0-8.0) Ur Specific [place] (1.001-1.035) Urine Protein (Negative) Urine Glucose (UA) (Negative) Urine Ketones (Negative) Urine Blood (Negative) Urine Nitrite (Negative) Urine Bilirubin (Negative) Urine Urobilinogen (<2.0) mg/dL Ur Leukocyte Esterase (Negative) Stool Occult Blood Negative (Negative) 03/14/18 Range/Units 18:45 WBC (3.8-10.6) k/uL RBC (4.30-5.90) m/uL Hgb (13.0-17.5) gm/dL Hct (39.0-53.0) % MCV (80.0-100.0) fL MCH (25.0-35.0) pg MCHC (31.0-37.0) g/dL RDW (11.5-15.5) % Plt Count (150-450) k/uL Neutrophils % % Lymphocytes % % Monocytes % % Eosinophils % % Basophils % % Neutrophils # (1.3-7.7) k/uL Lymphocytes # (1.0-4.8) k/uL Monocytes # (0-1.0) k/uL Eosinophils # (0-0.7) k/uL Basophils # (0-0.2) k/uL Sodium (137-145) mmol/L Potassium (3.5-5.1) mmol/L Chloride (98-107) mmol/L Carbon Dioxide (22-30) mmol/L Anion Gap mmol/L BUN (9-20) mg/dL Creatinine (0.66-1.25) mg/dL Est GFR (CKD-EPI)AfAm (>60 ml/min/1.73 sqM) Est GFR (CKD-EPI)NonAf (>60 ml/min/1.73 sqM) Glucose (74-99) mg/dL Calcium (8.4-10.2) mg/dL Total Bilirubin (0.2-1.3) mg/dL AST (17-59) U/L ALT (21-72) U/L Alkaline Phosphatase (38-126) U/L Total Protein (6.3-8.2) g/dL Albumin (3.5-5.0) g/dL Urine Color Yellow Urine Appearance Clear (Clear) Urine pH 5.5 (5.0-8.0) Ur Specific [place] 1.024 (1.001-1.035) Urine Protein Trace H (Negative) Urine Glucose (UA) Negative (Negative) Urine Ketones Trace H (Negative) Urine Blood Negative (Negative) Urine Nitrite Negative (Negative) Urine Bilirubin Negative (Negative) Urine Urobilinogen 3.0 (<2.0) mg/dL Ur Leukocyte Esterase Negative (Negative) Stool Occult Blood (Negative) Disposition Clinical Impression: Acute diarrhea Disposition: HOME SELF-CARE Condition: Good Instructions: Acute Diarrhea (ED) Additional Instructions: Please use medication as discussed. Please follow-up with family doctor in the next 2 days of symptoms have not improved. Please return to emergency room if the symptoms increase or worsen or for any other concerns. Is patient prescribed a controlled substance at d/c from ED?: No Referrals: Maki Plaza MD [Primary Care Provider] - 1-2 days Time of Disposition: 19:17
[2018-03-14 19:19] LABS: INR 0.9 (<1.2); Partial Thromboplastin Time 29.4 sec (22.0-30.0); Prothrombin Time 9.9 sec (9.0-12.0)
[2018-03-14 19:41] VITALS: BP 131/67; PULSE 80; RESP 18; TEMP 98
== END 2018-03-14 19:48 | disposition home or self-care (01) ==
LOC: EC 17:11
DX: R19.7 Diarrhea, unspecified (principal); J45.909 Unspecified asthma, uncomplicated; F41.9 Anxiety disorder, unspecified; F32.9 Major depressive disorder, single episode, unspecified; K20.9 Esophagitis, unspecified; F17.200 Nicotine dependence, unspecified, uncomplicated; Z79.899 Other long term (current) drug therapy; Z88.0 Allergy status to penicillin; Z91.018 Allergy to other foods; Z90.49 Acquired absence of other specified parts of digestive tract
CPT/HCPCS: 36415; 80053; 85025; 85610; 85730; 82272; 81003; 99284; 96374; C9113

== ENCOUNTER 2018-05-22 13:35 | Emergency (ER) | payer OTHER ==
[2018-05-22] MEDS ORDERED: ACETAMINOPHEN TAB 500 MG TAB PO STA (14:12)
[2018-05-22] MEDS ORDERED: SODIUM CHLORIDE 0.9% 1,000 ML IV STA (14:12)
[2018-05-22] MEDS ORDERED: IPRATROPIUM-ALBUTEROL 3 ML NEB INHALATION STA (14:12)
[2018-05-22] MEDS ORDERED: methylPREDNISolone SOD SUCCI 125 MG/2 ML VIAL IV STA (14:12)
--- NOTE | 2018-05-22 14:36 | ED ---
URI HPI - General Chief Complaint: Upper Respiratory Infection Stated Complaint: congestion/SOB Time Seen by Provider: 05/22/18 13:51 Source: patient, RN notes reviewed, old records reviewed Mode of arrival: ambulatory Limitations: no limitations - History of Present Illness Initial Comments: Patient is a 33-year-old male who presents emergency Department today with complaints of increased cough congestion. He reports that his symptoms started on May 08. He was completed a steroid and azithromycin pack. He continued to have some cough and shortness of breath. He was seen by vp outcomes Dr. Pedro. He also follows with Dr. Tamez. Patient was started on Levaquin and higher dose of steroids. He reports that he is feeling worse since May 15. Patient states that his cough will wake him up at night. Patient relates that he has had general body aches ears and chills. He reports he had a chest x-ray apparently 5 days ago which was negative for pneumonia. Patient is concerned that his symptoms are worsening and states that he feels that he needs to be admitted to the hospital. - Related Data Home Medications Medication Instructions Recorded Confirmed Famotidine [Pepcid] 20 mg PO BID 09/18/16 05/22/18 cloNIDine HCL [Catapres] 0.1 mg PO HS 09/18/16 05/22/18 DULoxetine HCL [Cymbalta] 30 mg PO HS 05/27/17 05/22/18 OLANZapine [ZyPREXA] 2.5 mg PO HS 05/27/17 05/22/18 Albuterol Inhaler [Ventolin Hfa 1 - 2 puff INHALATION RT-QID PRN 11/14/17 Inhaler] Albuterol Nebulized [Ventolin 2.5 mg INHALATION RT-QID PRN 11/14/17 05/22/18 Nebulized] Budesonide-Formot 160-4.5 Mcg 2 puff INHALATION RT-BID 11/14/17 05/22/18 [Symbicort 160-4.5 Mcg Inhaler] Multivitamin,Therapeutic [Thera] 1 tab PO DAILY 11/14/17 05/22/18 Turmeric Root Extract [Turmeric] 500 mg PO DAILY 11/14/17 05/22/18 clonazePAM [KlonoPIN] 0.25 - 1 mg PO TID PRN 11/14/17 05/22/18 Nicotine 14Mg/24Hr Patch [Habitrol 1 patch TRANSDERM DAILY 03/14/18 05/22/18 14Mg/24Hr Patch] buPROPion HCL [Wellbutrin SR] 150 mg PO BID 03/14/18 05/22/18 Previous Rx's Medication Instructions Recorded Ibuprofen 600 mg PO Q6H PRN 5 Days #20 tablet 11/14/17 Ipratropium-Albuterol Nebulize 3 ml INHALATION QID #20 neb 05/22/18 [Duoneb 0.5 mg-3 mg/3 ml Soln] Allergies Allergy/AdvReac Type Severity Reaction Status Date / Time oats Allergy Anaphylaxis Verified 05/22/18 14:09 Penicillins Allergy Unknown Verified 05/22/18 14:09 Childhood Review of Systems ROS Statement: Those systems with pertinent positive or pertinent negative responses have been documented in the HPI. ROS Other: All systems not noted in ROS Statement are negative. Past Medical History Past Medical History: Asthma, GERD/Reflux, Neurologic Disorder Additional Past Medical History / Comment(s): static encephalopathy as , broken back when he was 9 years old, still w/chronic back pain,esophagitis in past, intermittent diarrhea/constipation, sometimes controlling bowels, seen in [facility] in November w/possible ileus History of Any Multi-Drug Resistant Organisms: None Reported Past Surgical History: Cholecystectomy, Hernia Repair, Tonsillectomy Additional Past Surgical History / Comment(s): pulmonary procedure to "clean out lungs" after aspiration pneumonia @20 Past Anesthesia/Blood Transfusion Reactions: No Reported Reaction Past Psychological History: Anxiety, Depression Smoking Status: Current every day smoker Past Alcohol Use History: None Reported Past Drug Use History: None Reported - Past Family History Mother Family Medical History: No Reported History General Exam - General Exam Comments Initial Comments: 33-year-old male. Alert and oriented. Patient appears somewhat anxious. Limitations: no limitations General appearance: alert, in no apparent distress Head exam: Present: atraumatic, normocephalic, normal inspection Eye exam: Present: normal appearance, PERRL, EOMI. Absent: scleral icterus, conjunctival injection, periorbital swelling ENT exam: Present: normal exam, mucous membranes moist Neck exam: Present: normal inspection. Absent: tenderness, meningismus, lymphadenopathy Respiratory exam: Present: normal lung sounds bilaterally. Absent: respiratory distress, wheezes, rales, rhonchi, stridor Cardiovascular Exam: Present: regular rate, normal rhythm, normal heart sounds. Absent: systolic murmur, diastolic murmur, rubs, gallop, clicks GI/Abdominal exam: Present: soft, normal bowel sounds. Absent: distended, tenderness, guarding, rebound, rigid Extremities exam: Present: normal inspection, full ROM, normal capillary refill. Absent: tenderness, pedal edema, joint swelling, calf tenderness Back exam: Present: normal inspection Neurological exam: Present: alert, oriented X3, CN II-XII intact Psychiatric exam: Present: normal affect, normal mood Skin exam: Present: warm, dry, intact, normal color. Absent: rash Course Vital Signs 05/22/18 05/22/18 05/22/18 13:44 14:48 14:49 Temperature 98.8 F 99.0 F Pulse Rate 113 H 110 H Respiratory 22 18 20 Rate Blood Pressure 143/76 O2 Sat by Pulse 96 96 Oximetry 05/22/18 05/22/18 05/22/18 15:06 15:12 16:00 Temperature Pulse Rate 91 93 Respiratory 18 Rate Blood Pressure O2 Sat by Pulse 98 Oximetry Medical Decision Making - Medical Decision Making Patient is a 33-year-old male presents emergency department today with cough and congestion. She reports symptoms have been lasting since May 07. Patient has had problems with azithromycin and Levaquin. He is finishing Levaquin at this time. He arrived to the emergency department appearing somewhat anxious. He states that his coughing episodes of woke him up at night. He is currently on 30 mg of prednisone. Patient was started on IV fluids labwork obtained. Patient's labwork was unremarkable. Negative d- dimer. Chest x-ray shows no evidence of pneumonia. Flu test was negative. Patient's lungs had a mild wheeze on exam. Discussed with the Patient that he should continue to take the oral steroids and follow-up with his vp outcomes. Patient seemed quite upset that he would not be admitted. I did discuss that this can be an outpatient for for further evaluation with normal lab work normal vitals and imaging. - Lab Data Result diagrams: 05/22/18 14:20 05/22/18 14:20 Lab Results 05/22/18 05/22/18 05/22/18 Range/Units 14:20 14:20 14:20 WBC 10.6 (3.8-10.6) k/uL RBC 4.53 (4.30-5.90) m/uL Hgb 14.9 (13.0-17.5) gm/dL Hct 45.1 (39.0-53.0) % MCV 99.5 (80.0-100.0) fL MCH 32.8 (25.0-35.0) pg MCHC 32.9 (31.0-37.0) g/dL RDW 13.3 (11.5-15.5) % Plt Count 234 (150-450) k/uL Neutrophils % 86 % Lymphocytes % 8 % Monocytes % 3 % Eosinophils % 2 % Basophils % 1 % Neutrophils # 9.1 H (1.3-7.7) k/uL Lymphocytes # 0.9 L (1.0-4.8) k/uL Monocytes # 0.3 (0-1.0) k/uL Eosinophils # 0.2 (0-0.7) k/uL Basophils # 0.1 (0-0.2) k/uL D-Dimer <0.17 (<0.60) mg/L FEU Sodium 139 (137-145) mmol/L Potassium 4.3 (3.5-5.1) mmol/L Chloride 106 (98-107) mmol/L Carbon Dioxide 23 (22-30) mmol/L Anion Gap 10 mmol/L BUN 18 (9-20) mg/dL Creatinine 0.76 (0.66-1.25) mg/dL Est GFR (CKD-EPI)AfAm >90 (>60 ml/min/1.73 sqM) Est GFR (CKD-EPI)NonAf >90 (>60 ml/min/1.73 sqM) Glucose 119 H (74-99) mg/dL Calcium 9.6 (8.4-10.2) mg/dL Urine Color Urine Appearance (Clear) Urine pH (5.0-8.0) Ur Specific [place] (1.001-1.035) Urine Protein (Negative) Urine Glucose (UA) (Negative) Urine Ketones (Negative) Urine Blood (Negative) Urine Nitrite (Negative) Urine Bilirubin (Negative) Urine Urobilinogen (<2.0) mg/dL Ur Leukocyte Esterase (Negative) Influenza Type A RNA (Not Detectd) Influenza Type B (PCR) (Not Detectd) 05/22/18 05/22/18 Range/Units 14:20 14:35 WBC (3.8-10.6) k/uL RBC (4.30-5.90) m/uL Hgb (13.0-17.5) gm/dL Hct (39.0-53.0) % MCV (80.0-100.0) fL MCH (25.0-35.0) pg MCHC (31.0-37.0) g/dL RDW (11.5-15.5) % Plt Count (150-450) k/uL Neutrophils % % Lymphocytes % % Monocytes % % Eosinophils % % Basophils % % Neutrophils # (1.3-7.7) k/uL Lymphocytes # (1.0-4.8) k/uL Monocytes # (0-1.0) k/uL Eosinophils # (0-0.7) k/uL Basophils # (0-0.2) k/uL D-Dimer (<0.60) mg/L FEU Sodium (137-145) mmol/L Potassium (3.5-5.1) mmol/L Chloride (98-107) mmol/L Carbon Dioxide (22-30) mmol/L Anion Gap mmol/L BUN (9-20) mg/dL Creatinine (0.66-1.25) mg/dL Est GFR (CKD-EPI)AfAm (>60 ml/min/1.73 sqM) Est GFR (CKD-EPI)NonAf (>60 ml/min/1.73 sqM) Glucose (74-99) mg/dL Calcium (8.4-10.2) mg/dL Urine Color Yellow Urine Appearance Clear (Clear) Urine pH 6.0 (5.0-8.0) Ur Specific [place] 1.022 (1.001-1.035) Urine Protein Negative (Negative) Urine Glucose (UA) Trace H (Negative) Urine Ketones Trace H (Negative) Urine Blood Negative (Negative) Urine Nitrite Negative (Negative) Urine Bilirubin Negative (Negative) Urine Urobilinogen <2.0 (<2.0) mg/dL Ur Leukocyte Esterase Negative (Negative) Influenza Type A RNA Not Detected (Not Detectd) Influenza Type B (PCR) Not Detected (Not Detectd) - Radiology Data Radiology results: report reviewed Normal chest x-ray. Disposition Clinical Impression: COPD with acute exacerbation Disposition: HOME SELF-CARE Condition: Good Instructions (If sedation given, give patient instructions): Asthma (ED) Additional Instructions: Patient is advised to follow-up with primary care physician. Patient should return to the emergency department if any alarming signs or symptoms occur. Follow-up with your vp outcomes as well. Patient should continue the steroids as prescribed. Prescriptions: Ipratropium-Albuterol Nebulize [Duoneb 0.5 mg-3 mg/3 ml Soln] 3 ml INHALATION QID #20 neb Is patient prescribed a controlled substance at d/c from ED?: No Referrals: Maki Plaza MD [Primary Care Provider] - 1-2 days Tiny Chowdary MD [STAFF PHYSICIAN] - 1-2 days Time of Disposition: 16:29
[2018-05-22 14:43] LABS: Basophils # (A) 0.1 k/uL (0-0.2); Basophils % (A) 1 %; Eosinophils # (A) 0.2 k/uL (0-0.7); Eosinophils % (A) 2 %; HCT 45.1 % (39.0-53.0); HGB 14.9 gm/dL (13.0-17.5); Lymphocytes # (A) 0.9 k/uL (1.0-4.8); Lymphocytes % (A) 8 %; MCH 32.8 pg (25.0-35.0); MCHC 32.9 g/dL (31.0-37.0); MCV 99.5 fL (80.0-100.0); Mean Platelet Volume 7.2; Monocytes # (A) 0.3 k/uL (0-1.0); Monocytes % (A) 3 %; Neutrophils # (A) 9.1 k/uL (1.3-7.7); Neutrophils % (A) 86 %; Platelet Count 234 k/uL (150-450); RBC 4.53 m/uL (4.30-5.90); RDW 13.3 % (11.5-15.5); WBC 10.6 k/uL (3.8-10.6)
[2018-05-22 14:51] LABS: Anion Gap 10 mmol/L; Blood Urea Nitrogen 18 mg/dL (9-20); Calcium 9.6 mg/dL (8.4-10.2); Carbon Dioxide 23 mmol/L (22-30); Chloride 106 mmol/L (98-107); Glucose 119 mg/dL (74-99); Potassium 4.3 mmol/L (3.5-5.1); Sodium 139 mmol/L (137-145)
[2018-05-22 15:01] LABS: Appearance,Urine Clear (Clear); Bilirubin,Urine Negative (Negative); Blood,Urine Negative (Negative); Color,Urine Yellow; Glucose,Urine (UA) Trace (Negative); Ketones,Urine Trace (Negative); Leukocyte Esterase,Urine Negative (Negative); Nitrite,Urine Negative (Negative); Protein,Urine Negative (Negative); Specific Gravity,Urine 1.022 (1.001-1.035); Urobilinogen,Urine <2.0 mg/dL (<2.0)
--- NOTE | 2018-05-22 15:41 | XR ---
EXAMINATION TYPE: XR chest 2V DATE OF EXAM: 05/22/2018 COMPARISON: 05/15/2018 TECHNIQUE: PA and lateral views submitted. HISTORY: Cough FINDINGS: The lungs are clear and there is no pneumothorax, pleural effusion, or focal pneumonia. Pleural ten ting on the right is noted. No overt failure. Diffuse osteopenia. IMPRESSION: 1. No acute process.
[2018-05-22 17:00] VITALS: BP 126/72; PULSE 102; RESP 20; TEMP 98.6
== END 2018-05-22 16:55 | disposition home or self-care (01) ==
LOC: EC 13:35
DX: J44.1 Chronic obstructive pulmonary disease with (acute) exacerbation (principal); H92.03 Otalgia, bilateral; R52 Pain, unspecified; R68.83 Chills (without fever); K21.9 Gastro-esophageal reflux disease without esophagitis; F32.9 Major depressive disorder, single episode, unspecified; F41.9 Anxiety disorder, unspecified; F17.200 Nicotine dependence, unspecified, uncomplicated; Z88.0 Allergy status to penicillin; Z91.018 Allergy to other foods; Z79.51 Long term (current) use of inhaled steroids; Z79.899 Other long term (current) drug therapy; Z98.890 Other specified postprocedural states
CPT/HCPCS: 36415; 94640; 85379; 80048; 85025; 81003; 87040; 87502; 71046; 99285; 96374; 96361; J2930

== ENCOUNTER 2018-05-26 20:45 | Emergency (ER) | payer OTHER ==
[2018-05-26] MEDS ORDERED: IPRATROPIUM-ALBUTEROL 3 ML NEB INHALATION STA (21:28)
--- NOTE | 2018-05-26 21:37 | ED ---
SOB HPI - General Chief Complaint: Shortness of Breath Stated Complaint: NOMAN Time Seen by Provider: 05/26/18 21:19 Source: patient Mode of arrival: wheelchair Limitations: no limitations - History of Present Illness Initial Comments: 33-year-old male presents with ongoing shortness of breath for the last few weeks. Patient states he's been to the emergency room a few times along with his primary care and medical program specialist. Patient states it's just not getting better. Patient states he's been in rounds of steroids and antibiotics. Patient did take a breathing treatment about 4 hours prior to arrival. Patient states he feels feverish but no recorded high fever just 99.5. Patient feels cold and sweaty. Patient does take Klonopin for anxiety he states when he can't breathe he does feel more anxious. No leg edema. No history of blood clots. Patient has had a spontaneous pneumothorax in the past along with pneumonia. Patient does see Dr. Andrea medical program specialist for his asthma. MD Complaint: shortness of breath, anxiety -: week(s) Consistency: constant Improves With: bronchodilators, medication Known History Of: asthma, aspiration pneumonia Context: recent URI, anxiety Associated Symptoms: fever, cough - Related Data Home Medications Medication Instructions Recorded Confirmed Famotidine [Pepcid] 20 mg PO BID 09/18/16 05/22/18 cloNIDine HCL [Catapres] 0.1 mg PO HS 09/18/16 05/22/18 DULoxetine HCL [Cymbalta] 30 mg PO HS 05/27/17 05/22/18 OLANZapine [ZyPREXA] 2.5 mg PO HS 05/27/17 05/22/18 Albuterol Inhaler [Ventolin Hfa 1 - 2 puff INHALATION RT-QID PRN 11/14/17 Inhaler] Albuterol Nebulized [Ventolin 2.5 mg INHALATION RT-QID PRN 11/14/17 05/22/18 Nebulized] Budesonide-Formot 160-4.5 Mcg 2 puff INHALATION RT-BID 11/14/17 05/22/18 [Symbicort 160-4.5 Mcg Inhaler] Multivitamin,Therapeutic [Thera] 1 tab PO DAILY 11/14/17 05/22/18 Turmeric Root Extract [Turmeric] 500 mg PO DAILY 11/14/17 05/22/18 clonazePAM [KlonoPIN] 0.25 - 1 mg PO TID PRN 11/14/17 05/22/18 Nicotine 14Mg/24Hr Patch [Habitrol 1 patch TRANSDERM DAILY 03/14/18 05/22/18 14Mg/24Hr Patch] buPROPion HCL [Wellbutrin SR] 150 mg PO BID 03/14/18 05/22/18 Previous Rx's Medication Instructions Recorded Ibuprofen 600 mg PO Q6H PRN 5 Days #20 tablet 11/14/17 Ipratropium-Albuterol Nebulize 3 ml INHALATION QID #20 neb 05/22/18 [Duoneb 0.5 mg-3 mg/3 ml Soln] Ipratropium-Albuterol Nebulize 3 ml INHALATION QID PRN #30 neb 05/26/18 [Duoneb 0.5 mg-3 mg/3 ml Soln] predniSONE 20 mg PO DAILY #3 tab 05/26/18 Allergies Allergy/AdvReac Type Severity Reaction Status Date / Time oats Allergy Anaphylaxis Verified 05/22/18 14:09 Penicillins Allergy Unknown Verified 05/22/18 14:09 Childhood Review of Systems ROS Statement: Those systems with pertinent positive or pertinent negative responses have been documented in the HPI. ROS Other: All systems not noted in ROS Statement are negative. Constitutional: Reports: fever, chills Respiratory: Reports: cough, dyspnea Cardiovascular: Denies: chest pain, dyspnea on exertion Neurological: Denies: weakness Psychiatric: Reports: anxiety, depression Past Medical History Past Medical History: Asthma, GERD/Reflux, Neurologic Disorder Additional Past Medical History / Comment(s): static encephalopathy as , broken back when he was 9 years old, still w/chronic back pain,esophagitis in past, intermittent diarrhea/constipation, sometimes controlling bowels, seen in [facility] in November w/possible ileus History of Any Multi-Drug Resistant Organisms: None Reported Past Surgical History: Cholecystectomy, Hernia Repair, Tonsillectomy Additional Past Surgical History / Comment(s): pulmonary procedure to "clean out lungs" after aspiration pneumonia @20 Past Anesthesia/Blood Transfusion Reactions: No Reported Reaction Past Psychological History: Anxiety, Depression Smoking Status: Current every day smoker Past Alcohol Use History: None Reported Past Drug Use History: None Reported - Past Family History Mother Family Medical History: No Reported History General Exam Limitations: no limitations General appearance: alert, in no apparent distress, anxious Eye exam: Present: normal appearance, PERRL, EOMI. Absent: scleral icterus, conjunctival injection, periorbital swelling ENT exam: Present: normal exam, mucous membranes moist Neck exam: Present: normal inspection. Absent: tenderness, meningismus, lymphadenopathy Respiratory exam: Present: normal lung sounds bilaterally. Absent: respiratory distress, wheezes, rales, rhonchi, stridor Cardiovascular Exam: Present: regular rate, normal rhythm, normal heart sounds. Absent: systolic murmur, diastolic murmur, rubs, gallop, clicks GI/Abdominal exam: Present: soft, normal bowel sounds. Absent: distended, tenderness, guarding, rebound, rigid Neurological exam: Present: alert, oriented X3 Psychiatric exam: Present: normal affect, normal mood Skin exam: Present: warm, dry, intact, normal color. Absent: rash Course Vital Signs 05/26/18 05/26/18 05/26/18 21:08 21:13 22:00 Temperature 98.5 F Pulse Rate 115 H 106 H 101 H Respiratory 18 16 Rate Blood Pressure 131/74 134/70 O2 Sat by Pulse 97 94 L Oximetry 05/26/18 22:07 Temperature Pulse Rate 104 H Respiratory Rate Blood Pressure O2 Sat by Pulse Oximetry Medical Decision Making - Medical Decision Making reviewed all labs that were neg. pt discussed and evaluated by dr. beach. pt had chest tube in past on right side which may account for pts right lung scarring. Patient will be continued on 4 more days of 20 mg of steroids and then Continue to taper down his Dr. Chowdary directed. Patient to continue with his do not 2-4 times a day along with albuterol every 4 hours as needed. Patient return to the ER if symptoms progress or worsen. - Lab Data Result diagrams: 05/26/18 21:41 05/26/18 21:41 Lab Results 05/26/18 05/26/18 05/26/18 Range/Units 21:41 21:41 21:41 WBC 10.7 H (3.8-10.6) k/uL RBC 4.60 (4.30-5.90) m/uL Hgb 16.6 (13.0-17.5) gm/dL Hct 46.7 (39.0-53.0) % MCV 101.6 H (80.0-100.0) fL MCH 36.2 H (25.0-35.0) pg MCHC 35.6 (31.0-37.0) g/dL RDW 13.6 (11.5-15.5) % Plt Count 263 (150-450) k/uL Neutrophils % 66 % Lymphocytes % 23 % Monocytes % 6 % Eosinophils % 4 % Basophils % 1 % Neutrophils # 7.0 (1.3-7.7) k/uL Lymphocytes # 2.5 (1.0-4.8) k/uL Monocytes # 0.6 (0-1.0) k/uL Eosinophils # 0.4 (0-0.7) k/uL Basophils # 0.1 (0-0.2) k/uL Macrocytosis Slight D-Dimer 0.18 (<0.60) mg/L FEU Sodium 140 (137-145) mmol/L Potassium 4.7 (3.5-5.1) mmol/L Chloride 107 (98-107) mmol/L Carbon Dioxide 23 (22-30) mmol/L Anion Gap 10 mmol/L BUN 25 H (9-20) mg/dL Creatinine 0.85 (0.66-1.25) mg/dL Est GFR (CKD-EPI)AfAm >90 (>60 ml/min/1.73 sqM) Est GFR (CKD-EPI)NonAf >90 (>60 ml/min/1.73 sqM) Glucose 113 H (74-99) mg/dL Calcium 9.2 (8.4-10.2) mg/dL Total Bilirubin 0.6 (0.2-1.3) mg/dL AST 43 (17-59) U/L ALT 89 H (21-72) U/L Alkaline Phosphatase 65 (38-126) U/L Total Protein 7.2 (6.3-8.2) g/dL Albumin 4.2 (3.5-5.0) g/dL Disposition Clinical Impression: Asthma, Acute anxiety Disposition: HOME SELF-CARE Condition: Good Instructions (If sedation given, give patient instructions): Asthma (ED) Prescriptions: Ipratropium-Albuterol Nebulize [Duoneb 0.5 mg-3 mg/3 ml Soln] 3 ml INHALATION QID PRN #30 neb PRN Reason: Dyspnea predniSONE 20 mg PO DAILY #3 tab Is patient prescribed a controlled substance at d/c from ED?: No Referrals: Maki Plaza MD [Primary Care Provider] - 1-2 days Tiny Chowdary MD [STAFF PHYSICIAN] - 1-2 days Time of Disposition: 22:48
[2018-05-26 21:58] LABS: Basophils # (A) 0.1 k/uL (0-0.2); Basophils % (A) 1 %; Eosinophils # (A) 0.4 k/uL (0-0.7); Eosinophils % (A) 4 %; HCT 46.7 % (39.0-53.0); HGB 16.6 gm/dL (13.0-17.5); Lymphocytes # (A) 2.5 k/uL (1.0-4.8); Lymphocytes % (A) 23 %; MCH 36.2 pg (25.0-35.0); MCHC 35.6 g/dL (31.0-37.0); MCV 101.6 fL (80.0-100.0); Macrocytosis Slight; Mean Platelet Volume 7.1; Monocytes # (A) 0.6 k/uL (0-1.0); Monocytes % (A) 6 %; Neutrophils % (A) 66 %; Platelet Count 263 k/uL (150-450); RDW 13.6 % (11.5-15.5); WBC 10.7 k/uL (3.8-10.6)
[2018-05-26 22:07] LABS: ALT 89 U/L (21-72); AST 43 U/L (17-59); Albumin 4.2 g/dL (3.5-5.0); Alkaline Phosphatase 65 U/L (38-126); Anion Gap 10 mmol/L; Blood Urea Nitrogen 25 mg/dL (9-20); Calcium 9.2 mg/dL (8.4-10.2); Carbon Dioxide 23 mmol/L (22-30); Chloride 107 mmol/L (98-107); Glucose 113 mg/dL (74-99); Sodium 140 mmol/L (137-145); Total Bilirubin 0.6 mg/dL (0.2-1.3); Total Protein 7.2 g/dL (6.3-8.2)
[2018-05-26 22:16] LABS: Potassium 4.7 mmol/L (3.5-5.1)
--- NOTE | 2018-05-26 22:46 | XR ---
EXAM: XR Chest, 2 Views CLINICAL HISTORY: ITS.REASON XR Reason: Pain TECHNIQUE: Frontal and lateral views of the chest. COMPARISON: 05/22/18 chest x-ray IMPRESSION: No acute cardiopulmonary process.
[2018-05-26 23:02] VITALS: BP 134/78; PULSE 101; RESP 15; TEMP 98.4
== END 2018-05-26 23:01 | disposition home or self-care (01) ==
LOC: EC 20:45
DX: J45.909 Unspecified asthma, uncomplicated (principal); F41.9 Anxiety disorder, unspecified; K21.0 Gastro-esophageal reflux disease with esophagitis; F32.9 Major depressive disorder, single episode, unspecified; F17.200 Nicotine dependence, unspecified, uncomplicated; Z79.51 Long term (current) use of inhaled steroids; Z79.899 Other long term (current) drug therapy; Z88.0 Allergy status to penicillin; Z91.018 Allergy to other foods
CPT/HCPCS: 36415; 71046; 80053; 85025; 85379; 93005; 94640; 99285

== ENCOUNTER 2018-08-16 21:51 | Emergency (ER) | payer OTHER ==
--- NOTE | 2018-08-16 22:20 | XR ---
EXAM: XR Chest, 1 View CLINICAL HISTORY: Pain TECHNIQUE: Frontal view of the chest. COMPARISON: Chest x-ray dated 05/26/2017 FINDINGS: Lungs: Unremarkable. No consolidation. Pleural space: Chronic right basilar pleural thickening. No effusion. No pneumothorax. Heart: Unremarkable. No cardiomegaly. Mediastinum: Unremarkable. Bones/joints: Unremarkable. IMPRESSION: Normal chest x-ray.
--- NOTE | 2018-08-16 23:33 | ED ---
General Adult HPI - General Chief complaint: Upper Respiratory Infection Stated complaint: poss bronchitis Time Seen by Provider: 08/16/18 22:07 Source: patient Mode of arrival: ambulatory Limitations: no limitations - History of Present Illness Initial comments: Patient is a 33-year-old male presenting to emergency Department with a cough. Patient states the cough has been intermittent for the past 2-3 weeks for which he visited an urgent care and was prescribed azithromycin and steroids. Patient states that his condition is not improved. Patient states that his cough alternates between productive and nonproductive with "clear yellowish" sputum production. Patient denies rhinorrhea or nasal congestion. Patient reports a sore throat due to coughing. Patient denies any chest tightness, shortness of breath, chest pain. Patient denies fever, chills, night sweats, headaches, lightheadedness, dizziness. Patient states that he has asthma and uses albuterol to control his symptoms. Patient reports that he is a smoker. - Related Data Home Medications Medication Instructions Recorded Confirmed Famotidine [Pepcid] 20 mg PO BID 09/18/16 08/16/18 cloNIDine HCL [Catapres] 0.1 mg PO HS 09/18/16 08/16/18 DULoxetine HCL [Cymbalta] 30 mg PO HS 05/27/17 08/16/18 OLANZapine [ZyPREXA] 2.5 mg PO HS 05/27/17 08/16/18 Albuterol Inhaler [Ventolin Hfa 1 - 2 puff INHALATION RT-QID PRN 11/14/17 08/16/18 Inhaler] Albuterol Nebulized [Ventolin 2.5 mg INHALATION RT-QID PRN 11/14/17 08/16/18 Nebulized] clonazePAM [KlonoPIN] 0.25 - 1 mg PO TID PRN 11/14/17 08/16/18 buPROPion HCL [Wellbutrin SR] 150 mg PO BID 03/14/18 08/16/18 Ipratropium-Albuterol Nebulize 3 ml INHALATION RT-QID 08/16/18 08/16/18 [Duoneb 0.5 mg-3 mg/3 ml Soln] Meloxicam [Mobic] 15 mg PO DAILY PRN 08/16/18 08/16/18 Allergies Allergy/AdvReac Type Severity Reaction Status Date / Time oats Allergy Anaphylaxis Verified 08/16/18 22:28 Penicillins Allergy Unknown Verified 08/16/18 22:28 Childhood Review of Systems ROS Statement: Those systems with pertinent positive or pertinent negative responses have been documented in the HPI. ROS Other: All systems not noted in ROS Statement are negative. Past Medical History Past Medical History: Asthma, GERD/Reflux, Neurologic Disorder Additional Past Medical History / Comment(s): static encephalopathy as infant, broken back when he was 9 years old, still w/chronic back pain,esophagitis in past, intermittent diarrhea/constipation, sometimes controlling bowels, seen in [facility] in November w/possible ileus History of Any Multi-Drug Resistant Organisms: None Reported Past Surgical History: Cholecystectomy, Hernia Repair, Tonsillectomy Additional Past Surgical History / Comment(s): pulmonary procedure to "clean out lungs" after aspiration pneumonia @20 Past Anesthesia/Blood Transfusion Reactions: No Reported Reaction Past Psychological History: Anxiety, Depression, PTSD Smoking Status: Current every day smoker Past Alcohol Use History: Rare Past Drug Use History: None Reported - Past Family History Mother Family Medical History: No Reported History General Exam Limitations: no limitations General appearance: alert, in no apparent distress Head exam: Present: atraumatic, normocephalic, normal inspection Eye exam: Present: normal appearance, PERRL, EOMI. Absent: conjunctival injection Pupils: Present: normal accommodation ENT exam: Present: normal exam, mucous membranes moist, TM's normal bilaterally Neck exam: Present: normal inspection. Absent: lymphadenopathy Respiratory exam: Present: normal lung sounds bilaterally. Absent: wheezes, rales Cardiovascular Exam: Present: regular rate, normal rhythm, normal heart sounds Back exam: Present: normal inspection Neurological exam: Present: alert, oriented X3 Psychiatric exam: Present: normal affect, normal mood Skin exam: Present: warm, normal color Course Vital Signs 08/16/18 21:53 Temperature 98.1 F Pulse Rate 97 Respiratory 20 Rate Blood Pressure 130/71 O2 Sat by Pulse 96 Oximetry Medical Decision Making - Medical Decision Making Patient is a 33-year-old male presenting to emergency Department with a cough. Based on physical examination and imaging studies I suspect that the patient appears to have a viral respiratory infection. Patient will be discharged with Mucinex DM for symptomatic relief. I counseled the patient for smoking cessation for greater than 3 minutes. Patient advised to follow up primary care. Patient advised to return to the emergency department if symptoms worsen. Case discussed with physician. Disposition Clinical Impression: Common cold Disposition: HOME SELF-CARE Condition: Stable Instructions (If sedation given, give patient instructions): Upper Respiratory Infection (ED) Additional Instructions: Please take prescribed medication as directed. Please follow up with primary c are. Please return to emergency department if symptoms worsen. Is patient prescribed a controlled substance at d/c from ED?: No Referrals: Maki Plaza MD [Primary Care Provider] - 1-2 days Time of Disposition: 23:31
[2018-08-17] VITALS: BP 132/78; PULSE 94; RESP 18; TEMP 98.6
== END 2018-08-16 23:40 | disposition home or self-care (01) ==
LOC: EC 21:51
DX: J00 Acute nasopharyngitis [common cold] (principal); Z71.6 Tobacco abuse counseling; K21.9 Gastro-esophageal reflux disease without esophagitis; J45.909 Unspecified asthma, uncomplicated; F41.9 Anxiety disorder, unspecified; F32.9 Major depressive disorder, single episode, unspecified; F17.200 Nicotine dependence, unspecified, uncomplicated; Z79.51 Long term (current) use of inhaled steroids; Z79.899 Other long term (current) drug therapy; Z88.0 Allergy status to penicillin; Z91.018 Allergy to other foods
CPT/HCPCS: 71046; 99283

== ENCOUNTER 2018-09-30 16:50 | Emergency (ER) | payer OTHER ==
[2018-09-30 17:58] VITALS: TEMP 98.7
[2018-09-30] MEDS ORDERED: TERBUTALINE 1 MG/ML VIAL SQ STA (19:58)
[2018-09-30 20:43] LABS: Basophils # (A) 0.1 k/uL (0-0.2); Basophils % (A) 1 %; Eosinophils # (A) 0.3 k/uL (0-0.7); Eosinophils % (A) 3 %; HCT 47.9 % (39.0-53.0); HGB 15.9 gm/dL (13.0-17.5); Lymphocytes # (A) 2.7 k/uL (1.0-4.8); Lymphocytes % (A) 33 %; MCH 31.9 pg (25.0-35.0); MCHC 33.2 g/dL (31.0-37.0); MCV 96.1 fL (80.0-100.0); Mean Platelet Volume 7.8; Monocytes # (A) 0.4 k/uL (0-1.0); Monocytes % (A) 5 %; Neutrophils # (A) 4.5 k/uL (1.3-7.7); Neutrophils % (A) 56 %; Platelet Count 256 k/uL (150-450); RBC 4.98 m/uL (4.30-5.90); RDW 14.3 % (11.5-15.5); WBC 8.1 k/uL (3.8-10.6)
[2018-09-30 20:57] LABS: ALT 63 U/L (21-72); AST 32 U/L (17-59); African American GFR (CKD) >90 (>60 ml/min/1.73 sqM); Albumin 4.8 g/dL (3.5-5.0); Alkaline Phosphatase 76 U/L (38-126); Anion Gap 10 mmol/L; Bilirubin, Delta 0.1 mg/dL (0.0-0.2); Bilirubin,Unconjugated 0.3 mg/dL (0.0-1.1); Blood Urea Nitrogen 11 mg/dL (9-20); Calcium 9.1 mg/dL (8.4-10.2); Carbon Dioxide 25 mmol/L (22-30); Chloride 105 mmol/L (98-107); Glucose 93 mg/dL (74-99); Lipase 100 U/L (23-300); Potassium 4.1 mmol/L (3.5-5.1); Sodium 140 mmol/L (137-145); Total Bilirubin 0.4 mg/dL (0.2-1.3); Total Protein 7.5 g/dL (6.3-8.2)
[2018-09-30] MEDS ORDERED: clonazePAM 0.5 MG TAB PO STA (21:20)
--- NOTE | 2018-09-30 22:11 | CT ---
EXAMINATION TYPE: CT abdomen pelvis w con DATE OF EXAM: 09/30/2018 COMPARISON: NONE HISTORY: 33-year-old male Black stool, diarrhea x2 days TECHNIQUE: Contiguous axial scanning of the abdomen and pelvis following administration of 100 ml Iso carol 300 IV contrast. Delayed images through the kidneys and coronal/sagittal reconstructions perform ed. CT DLP: 760.1 mGycm Automated exposure control for dose reduction was used. FINDINGS: Heart normal size without pericardial effusion. Lung bases clear without pleural effusion. No focal liver lesion or biliary ductal dilatation. Portal venous system is patent. Gallbladder surgically absent. Adrenal glands, kidneys, spleen, and pancreas appear within normal limits. No dilated small bowel, free fluid, or free air. However, there is prominent fluid-filled small bowel loops throughout the abdomen. There may be mild circumferential wall thickening of the sigmoid colon as well. Normal appendix. No mesenteric or retroperitoneal lymphadenopathy. Small fatty umbilical hernia. Circumferential bladder wall thickening. Prostate gland measures 4.1 cm wide. No abnormal fluid colle ction in the pelvis or pelvic lymphadenopathy. Bones: No osseous destructive process. IMPRESSION: 1. PROMINENT FLUID-FILLED SMALL BOWEL LOOPS THROUGHOUT. ADDITIONAL MILD CIRCUMFERENTIAL WALL THICKENI NG OF THE SIGMOID COLON. CORRELATE FOR POSSIBLE ENTEROCOLITIS. 2. MILD CIRCUMFERENTIAL BLADDER WALL THICKENING MAY BE DUE TO CYSTITIS OR UNDERDISTENTION. 3. SMALL FATTY UMBILICAL HERNIA.
[2018-09-30] MEDS ORDERED: metroNIDAZOLE 500 MG TAB PO STA (22:56)
[2018-09-30] MEDS ORDERED: CIPROFLOXACIN HCL 500 MG TAB PO STA (22:56)
--- NOTE | 2018-09-30 23:01 | ED ---
Abdominal Pain HPI - General Chief Complaint: Abdominal Pain Stated Complaint: black stool Time Seen by Provider: 09/30/18 18:04 Source: patient Mode of arrival: ambulatory Limitations: no limitations - History of Present Illness Initial Comments: 33 year old male presenting with black stools for the past two days. He admits to mild abdominal cramping. He states he has a long history of GI symptoms and intermittent fecal incontinence. He states that he sees Dr. Velasco for GI and that he had a normal colonoscopy and biopsy one year prior. He states he would like to switch GI doctors but cannot see Dr. Degroot until the end of November. He denies any fevers chills or history GI bleeding. Denies history of inflammatory bowel disease. Denies any anticoagulation use. The patient states that he has had one episode of anal intercourse against his consent. - Related Data Home Medications Medication Instructions Recorded Confirmed Famotidine [Pepcid] 20 mg PO BID 09/18/16 08/16/18 cloNIDine HCL [Catapres] 0.1 mg PO HS 09/18/16 08/16/18 DULoxetine HCL [Cymbalta] 30 mg PO HS 05/27/17 08/16/18 OLANZapine [ZyPREXA] 2.5 mg PO HS 05/27/17 08/16/18 Albuterol Inhaler [Ventolin Hfa 1 - 2 puff INHALATION RT-QID PRN 11/14/17 08/16/18 Inhaler] Albuterol Nebulized [Ventolin 2.5 mg INHALATION RT-QID PRN 11/14/17 08/16/18 Nebulized] clonazePAM [KlonoPIN] 0.25 - 1 mg PO TID PRN 11/14/17 08/16/18 buPROPion HCL [Wellbutrin SR] 150 mg PO BID 03/14/18 08/16/18 Ipratropium-Albuterol Nebulize 3 ml INHALATION RT-QID 08/16/18 08/16/18 [Duoneb 0.5 mg-3 mg/3 ml Soln] Meloxicam [Mobic] 15 mg PO DAILY PRN 08/16/18 08/16/18 Previous Rx's Medication Instructions Recorded Guaifenesin/Dextromethorphan 1 each PO BID #20 tab.er.12h 08/16/18 [Mucinex Dm ER 1,200-60 mg Tab] Ciprofloxacin HCl 500 mg PO BID 7 Days #14 tab 09/30/18 metroNIDAZOLE [Flagyl] 500 mg PO BID 7 Days #14 tab 09/30/18 Allergies Allergy/AdvReac Type Severity Reaction Status Date / Time oats Allergy Anaphylaxis Verified 09/30/18 17:58 Penicillins Allergy Unknown Verified 09/30/18 17:58 Childhood Review of Systems ROS Statement: Those systems with pertinent positive or pertinent negative responses have been documented in the HPI. Review of Systems Constitutional: Denies fever, chills Eyes: Denies change in vision, Denies pain Ears, nose, mouth, throat: Denies headaches, Denies sore throat Cardiovascular: Denies chest pain. Denies palpitations Respiratory: Denies shortness of breath, Denies cough Gastrointestinal: Positive abdominal pain. Denies nausea, vomiting, positive diarrhea. Genitourinary: Denies hematuria, Denies infections Musculoskeletal: Denies pain, Denies swelling Integumentary: Denies rash Neurological: Denies headache, focal weakness, focal numbness Psychiatric: Denies anxiety, Denies depression Hematologic/Lymphatic: Denies easy bleeding or bruising ROS Other: All systems not noted in ROS Statement are negative. Past Medical History Past Medical History: Asthma, GERD/Reflux, Neurologic Disorder Additional Past Medical History / Comment(s): static encephalopathy as infant, broken back when he was 9 years old, still w/chronic back pain,esophagitis in past, intermittent diarrhea/constipation, sometimes controlling bowels, seen in in November w/possible ileus History of Any Multi-Drug Resistant Organisms: None Reported Past Surgical History: Cholecystectomy, Hernia Repair, Tonsillectomy Additional Past Surgical History / Comment(s): pulmonary procedure to "clean out lungs" after aspiration pneumonia @20 Past Anesthesia/Blood Transfusion Reactions: No Reported Reaction Past Psychological History: Anxiety, Depression, PTSD Smoking Status: Current every day smoker Past Alcohol Use History: Rare Past Drug Use History: None Reported - Past Family History Mother Family Medical History: No Reported History General Exam - General Exam Comments Initial Comments: General: Awake, alert, No acute Distress HENT: Normocephalic. Atraumatic Eyes: PERRL. EOMI. No scleral icterus. No injected conjunctiva Neck: Full ROM Chest/Lungs: Clear to auscultation bilaterally. No wheezing, rhonchi, or rales Cardiac: Regular rate, rhythm. No murmurs or rubs Abdomen/GI: Soft, nontender, nondistended. No rebound, guarding, or rigidity. Rectal: Normal rectal tone. No mass. No gross blood. Musculoskeletal: Full ROM Skin: Warm, dry, intact Neurologic: A/Ox3, no weakness, no sensory deficit, no abnormal gait, no coordination deficit Limitations: no limitations Course Vital Signs 09/30/18 09/30/18 17:56 23:14 Temperature 98.7 F Pulse Rate 85 72 Respiratory 18 16 Rate Blood Pressure 132/81 113/71 O2 Sat by Pulse 96 94 L Oximetry Medical Decision Making - Medical Decision Making 33-year-old male presenting with black stools and diarrhea. Patient admits to a long-standing history of GI issues. He has been following closely with a GI specialist. Presented today due to the concern of the black stools. Laboratory workup is unremarkable. Occult blood is negative. His CT abdomen and pelvis showed evidence of colitis. Due to the patient's change in GI habit I elected to treat him with Cipro and Flagyl. The patient is stable for outpatient treatment of his colitis. He had no episodes of incontinence in the emergency department. His incontinence is not a new symptom for him, and he has no cauda equina syndrome symptoms. He also has normal rectal tone. No further emergent workup indicated. The patient was given return to ED instructions. They were instructed to follow up with their primary care provider. Stable for discharge at this time. - Lab Data Result diagrams: 09/30/18 20:10 09/30/18 20:10 Lab Results 09/30/18 09/30/18 09/30/18 Range/Units 20:10 20:10 20:10 WBC 8.1 (3.8-10.6) k/uL RBC 4.98 (4.30-5.90) m/uL Hgb 15.9 (13.0-17.5) gm/dL Hct 47.9 (39.0-53.0) % MCV 96.1 (80.0-100.0) fL MCH 31.9 (25.0-35.0) pg MCHC 33.2 (31.0-37.0) g/dL RDW 14.3 (11.5-15.5) % Plt Count 256 (150-450) k/uL Neutrophils % 56 % Lymphocytes % 33 % Monocytes % 5 % Eosinophils % 3 % Basophils % 1 % Neutrophils # 4.5 (1.3-7.7) k/uL Lymphocytes # 2.7 (1.0-4.8) k/uL Monocytes # 0.4 (0-1.0) k/uL Eosinophils # 0.3 (0-0.7) k/uL Basophils # 0.1 (0-0.2) k/uL Sodium 140 (137-145) mmol/L Potassium 4.1 (3.5-5.1) mmol/L Chloride 105 (98-107) mmol/L Carbon Dioxide 25 (22-30) mmol/L Anion Gap 10 mmol/L BUN 11 (9-20) mg/dL Creatinine 0.82 (0.66-1.25) mg/dL Est GFR (CKD-EPI)AfAm >90 (>60 ml/min/1.73 sqM) Est GFR (CKD-EPI)NonAf >90 (>60 ml/min/1.73 sqM) Glucose 93 (74-99) mg/dL Calcium 9.1 (8.4-10.2) mg/dL Total Bilirubin 0.4 (0.2-1.3) mg/dL Conjugated Bilirubin 0.0 (0.0-0.3) mg/dL Unconjugated Bilirubin 0.3 (0.0-1.1) mg/dL Delta Bilirubin 0.1 (0.0-0.2) mg/dL AST 32 (17-59) U/L ALT 63 (21-72) U/L Alkaline Phosphatase 76 (38-126) U/L Total Protein 7.5 (6.3-8.2) g/dL Albumin 4.8 (3.5-5.0) g/dL Lipase 100 (23-300) U/L Stool Occult Blood (Negative) Blood Type A Positive Blood Type Recheck [facility] ONLY 09/30/18 Range/Units 21:29 WBC (3.8-10.6) k/uL RBC (4.30-5.90) m/uL Hgb (13.0-17.5) gm/dL Hct (39.0-53.0) % MCV (80.0-100.0) fL MCH (25.0-35.0) pg MCHC (31.0-37.0) g/dL RDW (11.5-15.5) % Plt Count (150-450) k/uL Neutrophils % % Lymphocytes % % Monocytes % % Eosinophils % % Basophils % % Neutrophils # (1.3-7.7) k/uL Lymphocytes # (1.0-4.8) k/uL Monocytes # (0-1.0) k/uL Eosinophils # (0-0.7) k/uL Basophils # (0-0.2) k/uL Sodium (137-145) mmol/L Potassium (3.5-5.1) mmol/L Chloride (98-107) mmol/L Carbon Dioxide (22-30) mmol/L Anion Gap mmol/L BUN (9-20) mg/dL Creatinine (0.66-1.25) mg/dL Est GFR (CKD-EPI)AfAm (>60 ml/min/1.73 sqM) Est GFR (CKD-EPI)NonAf (>60 ml/min/1.73 sqM) Glucose (74-99) mg/dL Calcium (8.4-10.2) mg/dL Total Bilirubin (0.2-1.3) mg/dL Conjugated Bilirubin (0.0-0.3) mg/dL Unconjugated Bilirubin (0.0-1.1) mg/dL Delta Bilirubin (0.0-0.2) mg/dL AST (17-59) U/L ALT (21-72) U/L Alkaline Phosphatase (38-126) U/L Total Protein (6.3-8.2) g/dL Albumin (3.5-5.0) g/dL Lipase (23-300) U/L Stool Occult Blood Negative (Negative) Blood Type Blood Type Recheck Disposition Clinical Impression: Colitis Disposition: HOME SELF-CARE Condition: Good Instructions (If sedation given, give patient instructions): Colitis (ED) Prescriptions: Ciprofloxacin HCl 500 mg PO BID 7 Days #14 tab metroNIDAZOLE [Flagyl] 500 mg PO BID 7 Days #14 tab Is patient prescribed a controlled substance at d/c from ED?: No Referrals: Maki Plaza MD [Primary Care Provider] - 1-2 days Candelaria Degroot MD [STAFF PHYSICIAN] - 1-2 days
[2018-09-30 23:16] VITALS: BP 113/71; PULSE 72; RESP 16
== END 2018-09-30 23:27 | disposition home or self-care (01) ==
LOC: EC 16:50
DX: K52.9 Noninfective gastroenteritis and colitis, unspecified (principal); J45.909 Unspecified asthma, uncomplicated; K21.9 Gastro-esophageal reflux disease without esophagitis; F32.9 Major depressive disorder, single episode, unspecified; F41.9 Anxiety disorder, unspecified; F17.200 Nicotine dependence, unspecified, uncomplicated; Z88.0 Allergy status to penicillin; Z91.018 Allergy to other foods; Z79.899 Other long term (current) drug therapy; Z90.49 Acquired absence of other specified parts of digestive tract; Z53.8 Procedure and treatment not carried out for other reasons
CPT/HCPCS: 36415; 86900; 86901; 80048; 80076; 83690; 85025; 82272; 74177; 99284; Q9967

== ENCOUNTER 2018-10-02 18:42 | Emergency (ER) | payer OTHER ==
[2018-10-02 18:51] VITALS: TEMP 98.8
[2018-10-02] MEDS ORDERED: SODIUM CHLORIDE 0.9% 1,000 ML IV STA (19:08)
[2018-10-02] MEDS ORDERED: ONDANSETRON 4 MG/2 ML VIAL IVP STA (19:08)
[2018-10-02] MEDS ORDERED: SODIUM CHLORIDE 0.9% 500 ML 500 ML IV STA (19:08)
--- NOTE | 2018-10-02 19:24 | ED ---
General Adult HPI - General Chief complaint: Dizziness Stated complaint: dizziness/nausea Time Seen by Provider: 10/02/18 18:53 Source: patient, RN notes reviewed Mode of arrival: ambulatory Limitations: no limitations - History of Present Illness Initial comments: This a 33-year-old male presents emergency Department chief complaint nausea, diarrhea. Patient states he is here for days ago diagnosed with colitis. Patient started on Cipro Flagyl. Patient states she's had taken Flagyl before he states that he feels that it's making him nauseated and dizzy at times. Denies any chest pain no current dizziness denies any fever, chills, headache, chest pain, shortness of breath. Patient states he has no localized abdominal pain states she's has abdominal cramping. Patient has no dysuria no hematuria. Patient states that he is having normal colostomy in the past by Dr. Velasco. Patient states he feels that he has been disregarded by Dr. Velasco for his chronic diarrhea. Patient states she has an appointment in [address] Moore. - Related Data Home Medications Medication Instructions Recorded Confirmed Famotidine [Pepcid] 20 mg PO BID 09/18/16 10/02/18 cloNIDine HCL [Catapres] 0.1 mg PO HS 09/18/16 10/02/18 DULoxetine HCL [Cymbalta] 30 mg PO HS 05/27/17 10/02/18 OLANZapine [ZyPREXA] 2.5 mg PO HS 05/27/17 10/02/18 Albuterol Inhaler [Ventolin Hfa 1 - 2 puff INHALATION RT-QID PRN 11/14/17 10/02/18 Inhaler] Albuterol Nebulized [Ventolin 2.5 mg INHALATION RT-QID PRN 11/14/17 10/02/18 Nebulized] clonazePAM [KlonoPIN] 0.25 - 1 mg PO TID PRN 11/14/17 10/02/18 buPROPion HCL [Wellbutrin SR] 150 mg PO BID 03/14/18 10/02/18 Ipratropium-Albuterol Nebulize 3 ml INHALATION RT-QID 08/16/18 10/02/18 [Duoneb 0.5 mg-3 mg/3 ml Soln] Meloxicam [Mobic] 15 mg PO DAILY PRN 08/16/18 10/02/18 Guaifenesin/Dextromethorphan 1 tab PO BID 10/02/18 10/02/18 [Mucinex Dm ER 1,200-60 mg Tab] Montelukast [Singulair] 10 mg PO HS 10/02/18 10/02/18 Pantoprazole Sodium [Protonix] 40 mg PO DAILY 10/02/18 10/02/18 Previous Rx's Medication Instructions Recorded Ciprofloxacin HCl 500 mg PO BID 7 Days #14 tab 09/30/18 metroNIDAZOLE [Flagyl] 500 mg PO BID 7 Days #14 tab 09/30/18 Ondansetron Odt [Zofran Odt] 4 mg PO Q8HR PRN #10 tab 10/02/18 Allergies Allergy/AdvReac Type Severity Reaction Status Date / Time oats Allergy Anaphylaxis Verified 10/02/18 19:00 Penicillins Allergy Unknown Verified 10/02/18 19:00 Childhood Review of Systems ROS Statement: Those systems with pertinent positive or pertinent negative responses have been documented in the HPI. ROS Other: All systems not noted in ROS Statement are negative. Past Medical History Past Medical History: Asthma, GERD/Reflux, Neurologic Disorder Additional Past Medical History / Comment(s): static encephalopathy as infant, broken back when he was 9 years old, still w/chronic back pain,esophagitis in p ast, intermittent diarrhea/constipation, sometimes controlling bowels, seen in [facility] in November w/possible ileus History of Any Multi-Drug Resistant Organisms: None Reported Past Surgical History: Cholecystectomy, Hernia Repair, Tonsillectomy Additional Past Surgical History / Comment(s): pulmonary procedure to "clean out lungs" after aspiration pneumonia @20 Past Anesthesia/Blood Transfusion Reactions: No Reported Reaction Past Psychological History: Anxiety, Depression, PTSD Smoking Status: Current every day smoker Past Alcohol Use History: Rare Past Drug Use History: None Reported - Past Family History Mother Family Medical History: No Reported History General Exam Limitations: no limitations General appearance: alert, in no apparent distress Head exam: Present: atraumatic, normocephalic, normal inspection Neck exam: Present: normal inspection, full ROM. Absent: tenderness, meningismus, lymphadenopathy Respiratory exam: Present: normal lung sounds bilaterally. Absent: respiratory distress, wheezes, rales, rhonchi, stridor Cardiovascular Exam: Present: regular rate, normal rhythm, normal heart sounds. Absent: systolic murmur, diastolic murmur, rubs, gallop, clicks GI/Abdominal exam: Present: soft, tenderness (Mild diffuse), normal bowel sounds. Absent: distended, guarding, rebound, rigid Back exam: Absent: CVA tenderness (R), CVA tenderness (L) Skin exam: Present: warm, dry, intact, normal color. Absent: rash Course Vital Signs 10/02/18 18:48 Temperature 98.8 F Pulse Rate 99 Respiratory 18 Rate Blood Pressure 149/61 O2 Sat by Pulse 96 Oximetry Medical Decision Making - Medical Decision Making 33-year-old male presented for nausea, intermittent dizziness abdominal discomfort. Patient with diagnosis of colitis CT was reviewed from prior ER visit. Labs are unchanged., Patient was hydrated given antiemetics. Patient be discharged on Zofran return parameters were discussed. - Lab Data Result diagrams: 10/02/18 19:10 10/02/18 19:10 Lab Results 10/02/18 10/02/18 10/02/18 Range/Units 19:10 19:10 19:10 WBC 8.3 (3.8-10.6) k/uL RBC 4.93 (4.30-5.90) m/uL Hgb 15.5 (13.0-17.5) gm/dL Hct 47.2 (39.0-53.0) % MCV 95.9 (80.0-100.0) fL MCH 31.5 (25.0-35.0) pg MCHC 32.8 (31.0-37.0) g/dL RDW 12.5 (11.5-15.5) % Plt Count 278 (150-450) k/uL Neutrophils % 58 % Lymphocytes % 29 % Monocytes % 7 % Eosinophils % 4 % Basophils % 1 % Neutrophils # 4.8 (1.3-7.7) k/uL Lymphocytes # 2.4 (1.0-4.8) k/uL Monocytes # 0.6 (0-1.0) k/uL Eosinophils # 0.3 (0-0.7) k/uL Basophils # 0.1 (0-0.2) k/uL Sodium 141 (137-145) mmol/L Potassium 3.9 (3.5-5.1) mmol/L Chloride 107 (98-107) mmol/L Carbon Dioxide 24 (22-30) mmol/L Anion Gap 10 mmol/L BUN 13 (9-20) mg/dL Creatinine 0.85 (0.66-1.25) mg/dL Est GFR (CKD-EPI)AfAm >90 (>60 ml/min/1.73 sqM) Est GFR (CKD-EPI)NonAf >90 (>60 ml/min/1.73 sqM) Glucose 100 H (74-99) mg/dL Plasma Lactic Acid Rock 1.0 (0.7-2.0) mmol/L Calcium 9.3 (8.4-10.2) mg/dL Total Bilirubin 0.3 (0.2-1.3) mg/dL AST 26 (17-59) U/L ALT 48 (21-72) U/L Alkaline Phosphatase 65 (38-126) U/L Total Protein 6.9 (6.3-8.2) g/dL Albumin 4.4 (3.5-5.0) g/dL Amylase 57 (30-110) U/L Lipase 123 (23-300) U/L Urine Color Urine Appearance (Clear) Urine pH (5.0-8.0) Ur Specific [place] (1.001-1.035) Urine Protein (Negative) Urine Glucose (UA) (Negative) Urine Ketones (Negative) Urine Blood (Negative) Urine Nitrite (Negative) Urine Bilirubin (Negative) Urine Urobilinogen (<2.0) mg/dL Ur Leukocyte Esterase (Negative) Urine WBC (0-5) /hpf Urine Mucus (None) /hpf 10/02/18 Range/Units 19:10 WBC (3.8-10.6) k/uL RBC (4.30-5.90) m/uL Hgb (13.0-17.5) gm/dL Hct (39.0-53.0) % MCV (80.0-100.0) fL MCH (25.0-35.0) pg MCHC (31.0-37.0) g/dL RDW (11.5-15.5) % Plt Count (150-450) k/uL Neutrophils % % Lymphocytes % % Monocytes % % Eosinophils % % Basophils % % Neutrophils # (1.3-7.7) k/uL Lymphocytes # (1.0-4.8) k/uL Monocytes # (0-1.0) k/uL Eosinophils # (0-0.7) k/uL Basophils # (0-0.2) k/uL Sodium (137-145) mmol/L Potassium (3.5-5.1) mmol/L Chloride (98-107) mmol/L Carbon Dioxide (22-30) mmol/L Anion Gap mmol/L BUN (9-20) mg/dL Creatinine (0.66-1.25) mg/dL Est GFR (CKD-EPI)AfAm (>60 ml/min/1.73 sqM) Est GFR (CKD-EPI)NonAf (>60 ml/min/1.73 sqM) Glucose (74-99) mg/dL Plasma Lactic Acid Rock (0.7-2.0) mmol/L Calcium (8.4-10.2) mg/dL Total Bilirubin (0.2-1.3) mg/dL AST (17-59) U/L ALT (21-72) U/L Alkaline Phosphatase (38-126) U/L Total Protein (6.3-8.2) g/dL Albumin (3.5-5.0) g/dL Amylase (30-110) U/L Lipase (23-300) U/L Urine Color Yellow Urine Appearance Clear (Clear) Urine pH 5.5 (5.0-8.0) Ur Specific [place] 1.026 (1.001-1.035) Urine Protein Negative (Negative) Urine Glucose (UA) Negative (Negative) Urine Ketones Trace H (Negative) Urine Blood Negative (Negative) Urine Nitrite Negative (Negative) Urine Bilirubin Negative (Negative) Urine Urobilinogen <2.0 (<2.0) mg/dL Ur Leukocyte Esterase Trace H (Negative) Urine WBC <1 (0-5) /hpf Urine Mucus Rare H (None) /hpf Disposition Clinical Impression: Colitis, Nausea Disposition: HOME SELF-CARE Condition: Stable Instructions (If sedation given, give patient instructions): Acute Nausea and Vomiting (ED) Additional Instructions: Please return to the Emergency Department if symptoms worsen or any other concerns. Prescriptions: Ondansetron Odt [Zofran Odt] 4 mg PO Q8HR PRN #10 tab PRN Reason: Nausea Is patient prescribed a controlled substance at d/c from ED?: No Referrals: Maki Plaza MD [Primary Care Provider] - 1-2 days Time of Disposition: 19:54
[2018-10-02 19:34] LABS: Basophils # (A) 0.1 k/uL (0-0.2); Basophils % (A) 1 %; Eosinophils # (A) 0.3 k/uL (0-0.7); Eosinophils % (A) 4 %; HCT 47.2 % (39.0-53.0); HGB 15.5 gm/dL (13.0-17.5); Lymphocytes # (A) 2.4 k/uL (1.0-4.8); Lymphocytes % (A) 29 %; MCH 31.5 pg (25.0-35.0); MCHC 32.8 g/dL (31.0-37.0); MCV 95.9 fL (80.0-100.0); Monocytes # (A) 0.6 k/uL (0-1.0); Monocytes % (A) 7 %; Neutrophils # (A) 4.8 k/uL (1.3-7.7); Neutrophils % (A) 58 %; Platelet Count 278 k/uL (150-450); RBC 4.93 m/uL (4.30-5.90); RDW 12.5 % (11.5-15.5); WBC 8.3 k/uL (3.8-10.6)
[2018-10-02 19:35] LABS: Appearance,Urine Clear (Clear); Bilirubin,Urine Negative (Negative); Blood,Urine Negative (Negative); Color,Urine Yellow; Glucose,Urine (UA) Negative (Negative); Ketones,Urine Trace (Negative); Leukocyte Esterase,Urine Trace (Negative); Mucus,Urine Rare /hpf; Nitrite,Urine Negative (Negative); PH, Urine 5.5 (5.0-8.0); Protein,Urine Negative (Negative); Specific Gravity,Urine 1.026 (1.001-1.035); Urobilinogen,Urine <2.0 mg/dL (<2.0)
[2018-10-02 19:45] LABS: ALT 48 U/L (21-72); AST 26 U/L (17-59); African American GFR (CKD) >90 (>60 ml/min/1.73 sqM); Albumin 4.4 g/dL (3.5-5.0); Alkaline Phosphatase 65 U/L (38-126); Amylase 57 U/L (30-110); Anion Gap 10 mmol/L; Blood Urea Nitrogen 13 mg/dL (9-20); Calcium 9.3 mg/dL (8.4-10.2); Carbon Dioxide 24 mmol/L (22-30); Chloride 107 mmol/L (98-107); Glucose 100 mg/dL (74-99); Lipase 123 U/L (23-300); Potassium 3.9 mmol/L (3.5-5.1); Sodium 141 mmol/L (137-145); Total Bilirubin 0.3 mg/dL (0.2-1.3); Total Protein 6.9 g/dL (6.3-8.2)
[2018-10-02 20:15] VITALS: BP 136/68; PULSE 89; RESP 16
== END 2018-10-02 20:15 | disposition home or self-care (01) ==
LOC: EC 18:42
DX: K52.9 Noninfective gastroenteritis and colitis, unspecified (principal); R42 Dizziness and giddiness; J45.909 Unspecified asthma, uncomplicated; K21.9 Gastro-esophageal reflux disease without esophagitis; F41.9 Anxiety disorder, unspecified; F32.9 Major depressive disorder, single episode, unspecified; F17.200 Nicotine dependence, unspecified, uncomplicated; Z87.19 Personal history of other diseases of the digestive system; Z90.49 Acquired absence of other specified parts of digestive tract; Z98.890 Other specified postprocedural states; Z79.899 Other long term (current) drug therapy; Z88.0 Allergy status to penicillin; Z91.018 Allergy to other foods
CPT/HCPCS: 36415; 80053; 82150; 83605; 83690; 85025; 81001; 99284; 96374; 96361; J2405

== ENCOUNTER 2018-10-06 05:34 | Emergency (ER) | payer OTHER ==
[2018-10-06 05:43] VITALS: RESP 16
--- NOTE | 2018-10-06 06:17 | XR ---
EXAM: XR Abdomen, 1 View CLINICAL HISTORY: ITS.REASON XR Reason: abdominal pain TECHNIQUE: Frontal supine view of the abdomen/pelvis. COMPARISON: 11/19/17. FINDINGS: Gastrointestinal tract: Nonspecific bowel gas pattern. Bones/joints: No acute fracture. IMPRESSION: Nonspecific bowel gas pattern.
[2018-10-06 06:23] LABS: Basophils # (A) 0.1 k/uL (0-0.2); Basophils % (A) 0 %; Eosinophils # (A) 0.3 k/uL (0-0.7); Eosinophils % (A) 2 %; HCT 52.4 % (39.0-53.0); Lymphocytes # (A) 0.4 k/uL (1.0-4.8); Lymphocytes % (A) 3 %; MCH 31.3 pg (25.0-35.0); MCHC 32.4 g/dL (31.0-37.0); MCV 96.6 fL (80.0-100.0); Mean Platelet Volume 7.8; Monocytes # (A) 0.5 k/uL (0-1.0); Monocytes % (A) 3 %; Neutrophils # (A) 13.3 k/uL (1.3-7.7); Neutrophils % (A) 92 %; Platelet Count 241 k/uL (150-450); RBC 5.42 m/uL (4.30-5.90); RDW 14.9 % (11.5-15.5); WBC 14.5 k/uL (3.8-10.6)
[2018-10-06 06:27] LABS: Appearance,Urine Turbid (Clear); Bilirubin,Urine Negative (Negative); Color,Urine Dark Brown; Glucose,Urine (UA) Negative (Negative); Ketones,Urine 1+ (Negative); Protein,Urine 2+ (Negative); Specific Gravity,Urine 1.032 (1.001-1.035)
[2018-10-06 06:28] LABS: Bacteria,Urine Moderate /hpf; Blood,Urine Negative (Negative); Leukocyte Esterase,Urine Small (Negative); Mucus,Urine Many /hpf; Nitrite,Urine Negative (Negative); WBC,Urine 10 /hpf (0-5)
[2018-10-06 06:32] LABS: African American GFR (CKD) >90 (>60 ml/min/1.73 sqM); Albumin 5.3 g/dL (3.5-5.0); Amylase 70 U/L (30-110); Anion Gap 16 mmol/L; Calcium 9.7 mg/dL (8.4-10.2); Carbon Dioxide 19 mmol/L (22-30); Chloride 106 mmol/L (98-107); Glucose 138 mg/dL (74-99); Lipase 83 U/L (23-300); Sodium 141 mmol/L (137-145); Total Bilirubin 0.8 mg/dL (0.2-1.3); Total Protein 8.3 g/dL (6.3-8.2)
[2018-10-06] MEDS ORDERED: SODIUM CHLORIDE 0.9% 2,000 ML IV ONE (06:33)
[2018-10-06] MEDS ORDERED: FAMOTIDINE 20 MG/2 ML VIAL IV STA (06:33)
[2018-10-06] MEDS ORDERED: ONDANSETRON 4 MG/2 ML VIAL IVP STA (06:33)
[2018-10-06 06:36] LABS: ALT 66 U/L (21-72); AST 39 U/L (17-59); Alkaline Phosphatase 77 U/L (38-126); Blood Urea Nitrogen 15 mg/dL (9-20); Potassium 4.4 mmol/L (3.5-5.1)
--- NOTE | 2018-10-06 06:38 | ED ---
Abdominal Pain HPI - General Chief Complaint: Abdominal Pain Stated Complaint: Diarrhea,vomiting Time Seen by Provider: 10/06/18 05:51 Source: patient, family Mode of arrival: ambulatory Limitations: no limitations - History of Present Illness Initial Comments: Anastacio is a 33 yo male who presents the emergency department today for evaluation of nausea, vomiting and diarrhea. Patient reports he was seen and evaluated in the emergency department earlier in the week. She reports he's been compliant with the Cipro and Flagyl and is been doing well however around 11:00 last night he got nauseated and began having vomiting and diarrhea. Patient reports he attempted to take 4 mg of Zofran however he vomited that up. She reports that the has some epigastric discomfort which he attributes to vomiting. He does report that upon vomiting at arrival to the emergency department he noticed some specks of bright red blood in the vomit. He has no history of GI bleeding in the past. Patient reports that he was concern he may be becoming dehydrated which prompted his visit to the emergency department this morning. - Related Data Home Medications Medication Instructions Recorded Confirmed Famotidine [Pepcid] 20 mg PO BID 09/18/16 10/02/18 cloNIDine HCL [Catapres] 0.1 mg PO HS 09/18/16 10/02/18 DULoxetine HCL [Cymbalta] 30 mg PO HS 05/27/17 10/02/18 OLANZapine [ZyPREXA] 2.5 mg PO HS 05/27/17 10/02/18 Albuterol Inhaler [Ventolin Hfa 1 - 2 puff INHALATION RT-QID PRN 11/14/17 10/02/18 Inhaler] Albuterol Nebulized [Ventolin 2.5 mg INHALATION RT-QID PRN 11/14/17 10/02/18 Nebulized] clonazePAM [KlonoPIN] 0.25 - 1 mg PO TID PRN 11/14/17 10/02/18 buPROPion HCL [Wellbutrin SR] 150 mg PO BID 03/14/18 10/02/18 Ipratropium-Albuterol Nebulize 3 ml INHALATION RT-QID 08/16/18 10/02/18 [Duoneb 0.5 mg-3 mg/3 ml Soln] Meloxicam [Mobic] 15 mg PO DAILY PRN 08/16/18 10/02/18 Guaifenesin/Dextromethorphan 1 tab PO BID 10/02/18 10/02/18 [Mucinex Dm ER 1,200-60 mg Tab] Montelukast [Singulair] 10 mg PO HS 10/02/18 10/02/18 Pantoprazole Sodium [Protonix] 40 mg PO DAILY 10/02/18 10/02/18 Previous Rx's Medication Instructions Recorded Ciprofloxacin HCl 500 mg PO BID 7 Days #14 tab 09/30/18 metroNIDAZOLE [Flagyl] 500 mg PO BID 7 Days #14 tab 09/30/18 Ondansetron Odt [Zofran Odt] 4 mg PO Q8HR PRN #10 tab 10/02/18 Prochlorperazine [Compazine] 5 mg PO Q8HR PRN #15 tab 10/06/18 diphenhydrAMINE [Benadryl] 25 mg PO TID #30 capsule 10/06/18 Allergies Allergy/AdvReac Type Severity Reaction Status Date / Time oats Allergy Anaphylaxis Verified 10/02/18 19:00 Penicillins Allergy Unknown Verified 10/02/18 19:00 Childhood Review of Systems ROS Statement: Those systems with pertinent positive or pertinent negative responses have been documented in the HPI. ROS Other: All systems not noted in ROS Statement are negative. Past Medical History Past Medical History: Asthma, GERD/Reflux, Neurologic Disorder Additional Past Medical History / Comment(s): static encephalopathy as , broken back when he was 9 years old, still w/chronic back pain,esophagitis in past, intermittent diarrhea/constipation, sometimes controlling bowels, seen in in November w/possible ileus History of Any Multi-Drug Resistant Organisms: None Reported Past Surgical History: Cholecystectomy, Hernia Repair, Tonsillectomy Additional Past Surgical History / Comment(s): pulmonary procedure to "clean out lungs" after aspiration pneumonia @20 Past Anesthesia/Blood Transfusion Reactions: No Reported Reaction Past Psychological History: Anxiety, Depression, PTSD Smoking Status: Current every day smoker Past Alcohol Use History: Rare Past Drug Use History: None Reported - Past Family History Mother Family Medical History: No Reported History General Exam - General Exam Comments Initial Comments: Physical Exam GENERAL: Patient is well-developed and well-nourished. Patient is nontoxic appearing Appears slightly dehydrated HENT: Normocephalic, Atraumatic. Mucous membranes dry EYES: PERRL, EOMI PULMONARY: Unlabored respirations. CARDIOVASCULAR: RRR ABDOMEN: Soft and nontender with normal bowel sounds. SKIN: Skin is clear with no lesions or rashes and otherwise unremarkable. : Deferred NEUROLOGIC: Patient is alert and oriented x3. Moving all extremities spontaneously MUSCULOSKELETAL: Normal extremities with adequate strength and full range of motion. No lower extremity swelling or edema. No calf tenderness. PSYCHIATRIC: Normal psychiatric evaluation Limitations: no limitations Course Vital Signs 10/06/18 10/06/18 05:39 08:00 Temperature 97.5 F L 98 F Pulse Rate 102 H 74 Respiratory 16 16 Rate Blood Pressure 107/73 120/70 O2 Sat by Pulse 96 99 Oximetry Medical Decision Making - Medical Decision Making Patient was seen and evaluated, history is obtained from the patient and review of medical record 33-year-old male recently diagnosed with colitis presenting today with nausea vomiting and diarrhea Repeat labs, IV fluids, Pepcid, Zofran were ordered Patient was re-evaluated after medications, nausea improved but persisted to a lesser degree. Compazine and Benadryl ordered. I discussed with the patient options for admission to the hospital for further management, IV antibiotics and fluids versus discharge home. At this time patient feels that he be more comfortable being discharged home. I discussed with the patient that he needs to make sure to eat small meals before taking any of his antibiotics and not to take antibiotics on an empty stomach. I advised him to eat multiple small meals throughout the day and not have any large meals. I advised him to avoid any greasy spicy or irritating foods and keep a bland diet. All questions pertaining care were answered return parameters were discussed the patient was discharged home in stable condition with a plan to follow up with gastroenterology as scheduled next week. - Lab Data Result diagrams: 10/06/18 06:00 10/06/18 06:00 Lab Results 10/06/18 10/06/18 10/06/18 Range/Units 06:00 06:00 06:00 WBC 14.5 H (3.8-10.6) k/uL RBC 5.42 (4.30-5.90) m/uL Hgb 17.0 (13.0-17.5) gm/dL Hct 52.4 (39.0-53.0) % MCV 96.6 (80.0-100.0) fL MCH 31.3 (25.0-35.0) pg MCHC 32.4 (31.0-37.0) g/dL RDW 14.9 (11.5-15.5) % Plt Count 241 (150-450) k/uL Neutrophils % 92 % Lymphocytes % 3 % Monocytes % 3 % Eosinophils % 2 % Basophils % 0 % Neutrophils # 13.3 H (1.3-7.7) k/uL Lymphocytes # 0.4 L (1.0-4.8) k/uL Monocytes # 0.5 (0-1.0) k/uL Eosinophils # 0.3 (0-0.7) k/uL Basophils # 0.1 (0-0.2) k/uL Sodium 141 (137-145) mmol/L Potassium 4.4 (3.5-5.1) mmol/L Chloride 106 (98-107) mmol/L Carbon Dioxide 19 L (22-30) mmol/L Anion Gap 16 mmol/L BUN 15 (9-20) mg/dL Creatinine 0.90 (0.66-1.25) mg/dL Est GFR (CKD-EPI)AfAm >90 (>60 ml/min/1.73 sqM) Est GFR (CKD-EPI)NonAf >90 (>60 ml/min/1.73 sqM) Glucose 138 H (74-99) mg/dL Calcium 9.7 (8.4-10.2) mg/dL Total Bilirubin 0.8 (0.2-1.3) mg/dL AST 39 (17-59) U/L ALT 66 (21-72) U/L Alkaline Phosphatase 77 (38-126) U/L Total Protein 8.3 H (6.3-8.2) g/dL Albumin 5.3 H (3.5-5.0) g/dL Amylase 70 (30-110) U/L Lipase 83 (23-300) U/L Urine Color Dark Brown Urine Appearance Turbid (Clear) Urine pH 6.0 (5.0-8.0) Ur Specific [place] 1.032 (1.001-1.035) Urine Protein 2+ H (Negative) Urine Glucose (UA) Negative (Negative) Urine Ketones 1+ H (Negative) Urine Blood Negative (Negative) Urine Nitrite Negative (Negative) Urine Bilirubin Negative (Negative) Urine Urobilinogen 3.0 (<2.0) mg/dL Ur Leukocyte Esterase Small H (Negative) Urine WBC 10 H (0-5) /hpf Urine Bacteria Moderate H (None) /hpf Urine Mucus Many H (None) /hpf Disposition Clinical Impression: Nausea, Colitis Disposition: HOME SELF-CARE Condition: Stable Instructions (If sedation given, give patient instructions): Urinary Tract Infection in Men (ED) Prescriptions: diphenhydrAMINE [Benadryl] 25 mg PO TID #30 capsule Prochlorperazine [Compazine] 5 mg PO Q8HR PRN #15 tab PRN Reason: Nausea Is patient prescribed a controlled substance at d/c from ED?: No Referrals: Maki Plaza MD [Primary Care Provider] - 1-2 days
[2018-10-06] MEDS ORDERED: cefTRIAXone IN SWFI 1,000 MG/10 ML SYRINGE IVP STA (07:22)
[2018-10-06 08:01] VITALS: BP 120/70; PULSE 74; TEMP 98
== END 2018-10-06 08:00 | disposition home or self-care (01) ==
LOC: EC 05:34
DX: K52.9 Noninfective gastroenteritis and colitis, unspecified (principal); R11.0 Nausea; K21.9 Gastro-esophageal reflux disease without esophagitis; F41.9 Anxiety disorder, unspecified; F32.9 Major depressive disorder, single episode, unspecified; J45.909 Unspecified asthma, uncomplicated; F43.10 Post-traumatic stress disorder, unspecified; F17.200 Nicotine dependence, unspecified, uncomplicated; Z79.899 Other long term (current) drug therapy; Z88.0 Allergy status to penicillin; Z91.018 Allergy to other foods; Z90.49 Acquired absence of other specified parts of digestive tract
CPT/HCPCS: 36415; 80053; 82150; 83690; 85025; 81001; 87040; 87086; 74018; 99284; 96374; 96375 ×2; 96361; J2405; J0696